=== PATIENT | female | born 1980 | race African-American/Black ===

== ENCOUNTER 2019-07-25 07:38 | Emergency (ER) | payer MEDICAID, MEDICARE ==
--- NOTE | 2019-07-25 08:05 | EDM.PDOC ---
ED HPI GENERAL MEDICAL PROBLEM - General Chief Complaint: Headache Stated Complaint: HEADACHE Time Seen by Provider: 07/25/19 08:04 - History of Present Illness INITIAL COMMENTS - FREE TEXT/NARRATIVE: 39-year-old female presents emergency room with neck and head pain. this is been getting worse over the last couple of days. She has a significant history of cervical stenosis in the upper vertebrae. She has pain on the left side of her neck muscles that extend up the left side of her scalp. No nausea vomiting no fevers or chills. She is 3 months otherwise doing well she has no other complaints. She's had no change in her vision and hearing balance or other functions. 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 Headache Pain Score (Numeric/FACES): 5 - Related Data Allergies Allergy/AdvReac Type Severity Reaction Status Date / Time morphine Allergy Itching Verified 07/25/19 07:51 lactose AdvReac Stomach Verified 07/25/19 07:51 Ache promethazine AdvReac Headache Verified 07/25/19 07:51 Home Meds: Home Meds Acetaminophen [Tylenol] 650 mg PO Q6H PRN tablet 02/26/19 [Rx] Albuterol Sulfate [Albuterol Sulfate Hfa] 2 puff IH Q4H PRN 07/25/19 [History] Methocarbamol [Robaxin-750] 1,500 mg PO Q6H #25 tablet 07/25/19 [Rx] Mirtazapine [Remeron] 15 mg PO BEDTIME 07/25/19 [History] Past Medical History Respiratory History: Reports: Asthma 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: Musculoskeletal History: Reports: Other (See Below) Other Musculoskeletal History: spinal stenosis Neurological History: Reports: Neuropathy, Peripheral Social & Family History - Tobacco Use Smoking Status *Q: Never Smoker - Caffeine Use Caffeine Use: Reports: None - Recreational Drug Use Recreational Drug Use: No ED ROS GENERAL - Review of Systems Review Of Systems: See Below Constitutional: Reports: No Symptoms HEENT: Reports: No Symptoms Respiratory: Reports: No Symptoms Cardiovascular: Reports: No Symptoms Endocrine: Reports: No Symptoms GI/Abdominal: Reports: No Symptoms Musculoskeletal: Reports: Neck Pain Skin: Reports: No Symptoms Neurological: Reports: Headache - Physical Exam Exam: See Below Exam Limited By: No Limitations General Appearance: Alert, No Apparent Distress Eye Exam: Bilateral Eye: EOMI, Normal Inspection, PERRL Ears: Normal External Exam, Normal Canal, Hearing Grossly Normal, Normal TMs Nose: Normal Inspection, Normal Mucosa, No Blood Throat/Mouth: Normal Inspection, Normal Lips, Normal Teeth, Normal Gums, Normal Oropharynx, Normal Voice, No Airway Compromise Head Exam: Atraumatic, Normocephalic, Other (Is superficial tenderness on the left side of her scalp. This is radiating up from the paraspinous muscles in her neck) Neck: Limited Range of Motion, Other (To begin discomfort in the left paraspinous muscles extending into her upper back and shoulder and into the base of her skull palpation here mimics the pain in her head and neck)). No: Lymphadenopathy (L), Lymphadenopathy (R), Tender Midline Respiratory/Chest: No Respiratory Distress, Lungs Clear, Normal Breath Sounds Cardiovascular: Regular Rate, Rhythm, No Edema, No Murmur Course - Vital Signs Last Recorded V/S: Last Vital Signs Temp 36.0 C 07/25/19 07:49 Pulse 70 07/25/19 07:49 Resp 16 07/25/19 07:49 BP 135/103 H 07/25/19 07:49 Pulse Ox 100 07/25/19 07:49 - Re-Assessments/Exams Free Text/Narrative Re-Assessment/Exam: 07/25/19 08:28 The patient drove herself in and we do not have the luxury of treating her here we will start Robaxin as an outpatient Departure - Departure Time of Disposition: 08:28 Disposition: Home, Self-Care 01 Clinical Impression: Muscle tension headache - Discharge Information Prescriptions: Methocarbamol [Robaxin-750] 1,500 mg PO Q6H #25 tablet Referrals: PCP,None [Primary Care Provider] - Forms: ED Department Discharge, ED Return to Work/School Form Additional Instructions: Return to the emergency room with any questions problems worsening symptoms. Take the Robaxin as directed. Sometimes Benadryl 25-50 mg 3-4 times a day can be beneficial. Continue to use your Tylenol Sepsis Event Note - Evaluation Sepsis Screening Result: No Definite Risk - Focused Exam Vital Signs: Vital Signs Temp Pulse Resp BP Pulse Ox 07/25/19 07:49 36.0 C 70 16 135/103 H 100 Date Exam was Performed: 07/25/19 Time Exam was Performed: 08:21
== END 2019-07-25 08:56 | disposition home or self-care (01) ==
LOC: JD.ED 07:38
DX: G44.209 Tension-type headache, unspecified, not intractable (principal); Z88.5 Allergy status to narcotic agent; Z88.8 Allergy status to other drugs, medicaments and biological substances; Z91.011 Allergy to milk products; J45.909 Unspecified asthma, uncomplicated; Z79.899 Other long term (current) drug therapy
CPT/HCPCS: 99283

== ENCOUNTER 2019-10-14 21:26 | Emergency (ER) | payer MEDICAID, MEDICARE ==
--- NOTE | 2019-10-14 22:13 | EDM.PDOC ---
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 Patient states that she took a home test, and it returned positive today. Patient states that her last menstrual period was September 12, she is 33 days . She is a G8, P5 with 2 previous miscarriages. Patient is not complaining of any pelvic pain, vaginal bleeding or vaginal discharge. Patient states that her other pregnancies went well, she has not started taking any sort of prenatals at this time as she just found out today that she was . Patient is not complaining of any dysuria, but does have some frequency and urgency components. 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 ED EXAM, RENAL/ - Physical Exam Exam: See Below Exam Limited By: No Limitations General Appearance: Alert, WD/WN, No Apparent Distress Respiratory/Chest: No Respiratory Distress, Lungs Clear, Normal Breath Sounds, No Accessory Muscle Use, Chest Non-Tender Cardiovascular: Normal Peripheral Pulses, Regular Rate, Rhythm, No Murmur GI/Abdominal: Normal Bowel Sounds, Soft, Non-Tender, No Distention, No Mass (Female) Exam: Deferred Extremities: Normal Inspection, Normal Capillary Refill Neurological: Alert, Oriented, Normal Cognition, No Motor/Sensory Deficits Psychiatric: Normal Affect, Normal Mood Skin Exam: Warm, Dry, Intact, Normal Color, No Rash Course - Vital Signs Last Recorded V/S: Last Vital Signs Temp 98.5 F 10/14/19 21:46 Pulse 81 10/14/19 21:46 Resp 20 10/14/19 21:46 BP 126/90 10/14/19 21:46 Pulse Ox 99 10/14/19 21:46 - Orders/Labs/Meds Orders: Active Orders 24 hr Category Date Time Status UA W/MICROSCOPIC [URIN] Stat Lab 10/14/19 22:05 Ordered Labs: Laboratory Tests 10/14/19 10/14/19 Range/Units 22:00 22:00 Urine Color Yellow (Yellow) Urine Appearance Clear (Clear) Urine pH 5.5 (5.0-8.0) Ur Specific [place] > or = 1.030 (1.005-1.030) Urine Protein Negative (Negative) Urine Glucose (UA) Negative (Negative) Urine Ketones Negative (Negative) Urine Occult Blood Negative (Negative) Urine Nitrite Negative (Negative) Urine Bilirubin Negative (Negative) Urine Urobilinogen 0.2 (0.2-1.0) Ur Leukocyte Esterase Negative (Negative) Urine HCG, Qual Positive (NEGATIVE) - Re-Assessments/Exams Free Text/Narrative Re-Assessment/Exam: 10/14/19 22:13 Patient presents to the ED for the evaluation of urinary symptoms and possible . Due to her urinary frequency and urgency, we will check a UA today, and also an HCG. 10/14/19 22:29 Patient's urinalysis demonstrates no infection. HCG is positive. Pt will be discharged home with general recommendations. Departure - Departure Time of Disposition: 22:29 Disposition: Home, Self-Care 01 Condition: Fair Clinical Impression: Qualifiers: Weeks of gestation: less than 8 weeks Qualified Code(s): Z3A.01 - Less than 8 weeks gestation of - Discharge Information *PRESCRIPTION DRUG MONITORING PROGRAM REVIEWED*: No *COPY OF PRESCRIPTION DRUG MONITORING REPORT IN PATIENT MACO: No Instructions: Care Referrals: Ailyn Medrano MD [Primary Care Provider] - Forms: ED Department Discharge Additional Instructions: You were evaluated in the ER today for possible and some slight urinary symptoms. Urinalysis demonstrates no sign of an infection, and you are done by urine test at today's ER visit. Please start taking vitamins if you are not already doing so, and follow-up with DRAFTER DETAIL sometime in the next week or 2 for further management of your . Please return to the ER at any time if your symptoms change or worsen. Sepsis Event Note - Evaluation Sepsis Screening Result: No Definite Risk - Focused Exam Vital Signs: Vital Signs Temp Pulse Resp BP Pulse Ox 10/14/19 21:46 98.5 F 81 20 126/90 99 Date Exam was Performed: 10/14/19 Time Exam was Performed: 22:29 - My Orders Last 24 Hours: My Active Orders 10/14/19 22:05 UA W/MICROSCOPIC [URIN] Stat - Assessment/Plan Last 24 Hours: My Active Orders 10/14/19 22:05 UA W/MICROSCOPIC [URIN] Stat
== END 2019-10-14 22:55 | disposition home or self-care (01) ==
LOC: JD.ED 21:26
DX: O99.89 Other specified diseases and conditions complicating pregnancy, childbirth and the puerperium (principal); R35.0 Frequency of micturition; O99.331 Smoking (tobacco) complicating pregnancy, first trimester; F17.210 Nicotine dependence, cigarettes, uncomplicated; Z88.8 Allergy status to other drugs, medicaments and biological substances; Z88.5 Allergy status to narcotic agent; Z79.899 Other long term (current) drug therapy; Z3A.01 Less than 8 weeks gestation of pregnancy
CPT/HCPCS: 81001; 81025; 99282; 99284

== ENCOUNTER 2019-12-15 09:50 | Emergency (ER) | payer MEDICARE, MEDICAID ==
[2019-12-15] MEDS ORDERED: Acetaminophen 325 MG Tab PO ONE (10:15)
--- NOTE | 2019-12-15 12:14 | EDM.PDOC ---
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 This has been going on for a few days. She also has trouble urinating and pain with BMs. She is 13 weeks . She is . She has no vaginal bleeding and no discharge. She has no fever, chills, cough, congestion, runny nose, nausea or vomiting. Onset: Gradual Duration: Day(s): Location: Reports: Abdomen Quality: Reports: Sharp Severity: Moderate Improves with: Reports: None Worsens with: Reports: None Associated Symptoms: Reports: No Other Symptoms Lower Abdomen Pain Score (Numeric/FACES): 9 - Related Data Allergies Allergy/AdvReac Type Severity Reaction Status Date / Time morphine Allergy Itching Verified 12/15/19 10:07 lactose AdvReac Stomach Verified 12/15/19 10:07 Ache promethazine AdvReac Headache Verified 12/15/19 10:07 Home Meds: Home Meds Acetaminophen [Tylenol] 650 mg PO Q6H PRN tablet 02/26/19 [Rx] Albuterol Sulfate [Albuterol Sulfate Hfa] 2 puff IH Q4H PRN 07/25/19 [History] Aspirin [Adult Low Dose Aspirin EC] 81 mg PO DAILY 12/15/19 [History] Prenat 115/Iron Fum/Folic/Dss [ 19 Tablet] 1 tab PO DAILY 12/15/19 [ History] Past Medical History Respiratory History: Reports: Asthma 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: , 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 Musculoskeletal History: Reports: Other (See Below) Other Musculoskeletal History: spinal stenosis;arthritis to neck and spurs to neck;scoliosis Neurological History: Reports: Neuropathy, Peripheral Social & Family History - Tobacco Use Smoking Status *Q: Current Every Day Smoker Years of Tobacco use: 29 Packs/Tins Daily: 0.1 - Caffeine Use Caffeine Use: Reports: None - Recreational Drug Use Recreational Drug Use: Yes Drug Use in Last 12 Months: Yes Recreational Drug Type: Reports: Marijuana/Hashish Recreational Drug Use Frequency: Daily Recreational Drug Last Use: yesterday ED ROS GENERAL - Review of Systems Review Of Systems: See Below Constitutional: Reports: No Symptoms HEENT: Reports: No Symptoms Respiratory: Reports: No Symptoms Cardiovascular: Reports: No Symptoms Endocrine: Reports: No Symptoms GI/Abdominal: Reports: Abdominal Pain. Denies: Nausea, Vomiting : Reports: No Symptoms Musculoskeletal: Reports: No Symptoms ED EXAM, GI/ABD - Physical Exam Exam: See Below Exam Limited By: No Limitations General Appearance: Alert, No Apparent Distress Ears: Normal External Exam Nose: Normal Inspection Head: Atraumatic, Normocephalic Neck: Normal Inspection Respiratory/Chest: No Respiratory Distress, Lungs Clear, Normal Breath Sounds Cardiovascular: Regular Rate, Rhythm, No Edema, No Murmur GI/Abdominal Exam: Soft, Non-Tender, No Organomegaly, No Mass, Other (Uterus above the pelvis) Course - Vital Signs Last Recorded V/S: Last Vital Signs Temp 98.4 F 12/15/19 10:01 Pulse 69 12/15/19 10:01 Resp 20 12/15/19 10:01 BP 124/82 12/15/19 10:01 Pulse Ox 100 12/15/19 10:01 - Orders/Labs/Meds Orders: Active Orders 24 hr Category Date Time Status OB 1st Tri Sgl 1st Gest [US] Stat Exams 12/15/19 10:13 Taken HYDROmorphone [Dilaudid] Med 12/15/19 12:18 Once 0.5 mg IM ONETIME ONE Labs: Laboratory Tests 12/15/19 12/15/19 12/15/19 Range/Units 10:00 10:40 10:40 WBC 6.06 (3.98-10.04) K/mm3 RBC 4.37 (3.98-5.22) M/mm3 Hgb 12.7 (11.2-15.7) gm/dl Hct 37.6 (34.1-44.9) % MCV 86.0 (79.4-94.8) fl MCH 29.1 (25.6-32.2) pg MCHC 33.8 (32.2-35.5) g/dl RDW Std Deviation 44.5 (36.4-46.3) fL Plt Count 300 (182-369) K/mm3 MPV 9.8 (9.4-12.3) fl Neut % (Auto) 43.3 (34.0-71.1) % Lymph % (Auto) 41.1 (19.3-51.7) % [place] % (Auto) 8.1 (4.7-12.5) % Eos % (Auto) 6.8 H (0.7-5.8) Baso % (Auto) 0.5 (0.1-1.2) % Neut # (Auto) 2.63 (1.56-6.13) K/mm3 Lymph # (Auto) 2.49 (1.18-3.74) K/mm3 [place] # (Auto) 0.49 H (0.24-0.36) K/mm3 Eos # (Auto) 0.41 H (0.04-0.36) K/mm3 Baso # (Auto) 0.03 (0.01-0.08) K/mm3 Sodium 136 (136-145) mEq/L Potassium 4.0 (3.5-5.1) mEq/L Chloride 104 (98-107) mEq/L Carbon Dioxide 22 (21-32) mEq/L Anion Gap 14.0 (5-15) BUN 7 (7-18) mg/dL Creatinine 0.6 (0.55-1.02) mg/dL Est Cr Clr Drug Dosing 117.84 mL/min Estimated GFR (MDRD) > 60 (>60) mL/min BUN/Creatinine Ratio 11.7 L (14-18) Glucose 90 (74-106) mg/dL Calcium 8.7 (8.5-10.1) mg/dL Total Bilirubin 0.4 (0.2-1.0) mg/dL AST 14 L (15-37) U/L ALT 17 (14-59) U/L Alkaline Phosphatase 61 (46-116) U/L Total Protein 6.9 (6.4-8.2) g/dl Albumin 3.4 (3.4-5.0) g/dl Globulin 3.5 gm/dL Albumin/Globulin Ratio 1.0 (1-2) Lipase 165 (73-393) U/L HCG, Quant mIU/mL Urine Color Yellow (Yellow) Urine Appearance Clear (Clear) Urine pH 6.5 (5.0-8.0) Ur Specific [place] 1.025 (1.005-1.030) Urine Protein Negative (Negative) Urine Glucose (UA) Negative (Negative) Urine Ketones Negative (Negative) Urine Occult Blood Negative (Negative) Urine Nitrite Negative (Negative) Urine Bilirubin Negative (Negative) Urine Urobilinogen 0.2 (0.2-1.0) Ur Leukocyte Esterase Negative (Negative) 12/15/19 Range/Units 10:40 WBC (3.98-10.04) K/mm3 RBC (3.98-5.22) M/mm3 Hgb (11.2-15.7) gm/dl Hct (34.1-44.9) % MCV (79.4-94.8) fl MCH (25.6-32.2) pg MCHC (32.2-35.5) g/dl RDW Std Deviation (36.4-46.3) fL Plt Count (182-369) K/mm3 MPV (9.4-12.3) fl Neut % (Auto) (34.0-71.1) % Lymph % (Auto) (19.3-51.7) % [place] % (Auto) (4.7-12.5) % Eos % (Auto) (0.7-5.8) Baso % (Auto) (0.1-1.2) % Neut # (Auto) (1.56-6.13) K/mm3 Lymph # (Auto) (1.18-3.74) K/mm3 [place] # (Auto) (0.24-0.36) K/mm3 Eos # (Auto) (0.04-0.36) K/mm3 Baso # (Auto) (0.01-0.08) K/mm3 Sodium (136-145) mEq/L Potassium (3.5-5.1) mEq/L Chloride (98-107) mEq/L Carbon Dioxide (21-32) mEq/L Anion Gap (5-15) BUN (7-18) mg/dL Creatinine (0.55-1.02) mg/dL Est Cr Clr Drug Dosing mL/min Estimated GFR (MDRD) (>60) mL/min BUN/Creatinine Ratio (14-18) Glucose (74-106) mg/dL Calcium (8.5-10.1) mg/dL Total Bilirubin (0.2-1.0) mg/dL AST (15-37) U/L ALT (14-59) U/L Alkaline Phosphatase (46-116) U/L Total Protein (6.4-8.2) g/dl Albumin (3.4-5.0) g/dl Globulin gm/dL Albumin/Globulin Ratio (1-2) Lipase (73-393) U/L HCG, Quant 615027.0 mIU/mL Urine Color (Yellow) Urine Appearance (Clear) Urine pH (5.0-8.0) Ur Specific [place] (1.005-1.030) Urine Protein (Negative) Urine Glucose (UA) (Negative) Urine Ketones (Negative) Urine Occult Blood (Negative) Urine Nitrite (Negative) Urine Bilirubin (Negative) Urine Urobilinogen (0.2-1.0) Ur Leukocyte Esterase (Negative) Meds: Medications Discontinued Medications Generic Name Dose Route Start Last Admin Trade Name Freq PRN Reason Stop Dose Admin Acetaminophen 975 mg 12/15/19 10:15 12/15/19 10:19 Tylenol PO 12/15/19 10:16 975 mg ONETIME ONE Administration - Re-Assessments/Exams Free Text/Narrative Re-Assessment/Exam: 12/15/19 12:11 I ordered labs and an US. Her CBC and CMP look good. Her lipase is negative. Her HCG is 107,677. Her UA shows no UTI. Her US shows FHR of 159 and the fetus measures 13 weeks 4 days. Her EDC 06/17. 12/15/19 12:19 She still has some pain. I will give her a shot and discharge her home to follow up with Dr Winston early next week. Departure - Departure Time of Disposition: 12:20 Disposition: Home, Self-Care 01 Condition: Good Clinical Impression: Qualifiers: Weeks of gestation: 13 weeks Qualified Code(s): Z3A.13 - 13 weeks gestation of Abdominal pain Qualifiers: Abdominal location: lower abdomen, unspecified Qualified Code(s): R10.30 - Lower abdominal pain, unspecified - Discharge Information *PRESCRIPTION DRUG MONITORING PROGRAM REVIEWED*: Not Applicable *COPY OF PRESCRIPTION DRUG MONITORING REPORT IN PATIENT MACO: Not Applicable Referrals: Sadaf Winston MD [Primary Care Provider] - 1 Week Forms: ED Department Discharge Additional Instructions: Take tylenol as needed for pain. Please return if you are worse. Follow up with Dr Winston next week. Sepsis Event Note - Evaluation Sepsis Screening Result: No Definite Risk - Focused Exam Vital Signs: Vital Signs Temp Pulse Resp BP Pulse Ox 12/15/19 10:01 98.4 F 69 20 124/82 100 Date Exam was Performed: 12/15/19 Time Exam was Performed: 12:19 - My Orders Last 24 Hours: My Active Orders 12/15/19 10:13 OB 1st Tri Sgl 1st Gest [US] Stat 12/15/19 12:18 HYDROmorphone [Dilaudid] 0.5 mg IM ONETIME ONE - Assessment/Plan Last 24 Hours: My Active Orders 12/15/19 10:13 OB 1st Tri Sgl 1st Gest [US] Stat 12/15/19 12:18 HYDROmorphone [Dilaudid] 0.5 mg IM ONETIME ONE
[2019-12-15] MEDS ORDERED: HYDROmorphone 0.5 MG/0.5 ML Syringe IM ONE (12:18)
--- NOTE | 2019-12-16 11:25 | US ---
Obstetrical ultrasound: Multiple real-time images were obtained transabdominally. Comparison: No previous obstetrical imaging for current is available. Dates: Current ultrasound: [facility] 06/17/20, gestational age 13 weeks 4 days Single intrauterine fetus is seen. Maternal ovaries appear within normal limits. Multiple small subchorionic hemorrhages are noted. Measurements: BPD: 2.33 cm - 14 weeks 0 days Head circumference: 8.73 cm - 14 weeks 0 days Abdominal circumference: 6.9 cm - 13 weeks 4 days Femur length: 1.03 cm - 13 weeks 1 day Estimated weight: 74 g (0 lbs. 3 oz.) Heart rate: 159 bpm Impression: 1. Single intrauterine fetus. Dates as noted above. 2. Multiple small subchorionic hemorrhages. 3. No other complicating process is appreciated. Diagnostic code #3 This report was dictated in MDT I agree with preliminary report from ty, finalized on 12/15/19, 6:28 PM Central Daylight Time
== END 2019-12-15 12:50 | disposition home or self-care (01) ==
LOC: JD.ED 09:50
DX: O99.89 Other specified diseases and conditions complicating pregnancy, childbirth and the puerperium (principal); R10.30 Lower abdominal pain, unspecified; O99.511 Diseases of the respiratory system complicating pregnancy, first trimester; J45.909 Unspecified asthma, uncomplicated; O99.331 Smoking (tobacco) complicating pregnancy, first trimester; F17.210 Nicotine dependence, cigarettes, uncomplicated; Z3A.13 13 weeks gestation of pregnancy; Z88.5 Allergy status to narcotic agent; Z88.8 Allergy status to other drugs, medicaments and biological substances; Z91.09 Other allergy status, other than to drugs and biological substances; Z79.82 Long term (current) use of aspirin
CPT/HCPCS: 36415; 76801; 80053; 81003; 83690; 84702; 85025; 96372; 99284; A9270; J1170; 99282

== ENCOUNTER 2020-06-08 11:25 | Inpatient (IN) | payer MEDICARE, MEDICAID ==
[2020-06-08] MEDS ORDERED: Sodium Chloride 0.9% 10 ML Syringe FLUSH PRN (12:04)
[2020-06-08] MEDS ORDERED: Lidocaine 1% 50 ML MDV INJECT ONE (12:04)
[2020-06-08] MEDS ORDERED: Acetaminophen 325 MG Tab PO PRN (12:04)
[2020-06-08] MEDS ORDERED: Oxytocin/Lactated Ringers 10 UNIT/1,000 ML BAG IV SCH ×2 (12:15→15:55)
[2020-06-08] MEDS ORDERED: Lactated Ringers 1,000 ML IV SCH (12:15)
[2020-06-08] MEDS ORDERED: Nalbuphine 10 MG/ML Syringe IVPUSH PRN ×2 (12:18→14:44)
[2020-06-08] MEDS ORDERED: FLU VACC QS2020-21(6MOS UP)/PF 60 MCG/0.5 ML SYRINGE IM ONE (13:00)
--- NOTE | 2020-06-08 13:02 | PCM.LDHP ---
<Bertha Galicia - Last Filed: 06/08/20 12:57> L&D History of Present Illness - General Date of Service: 06/08/20 Admit Problem/Dx: Patient Status Order with Admit Dx/Problem 06/08/20 12:04 Patient Status [ADT] Routine Admission Diagnosis/Problem Admission Diagnosis/Problem 06/08/20 12:57 Patient is a 40 y.o. 8 para 5 female who presents in early labor at 38 weeks and 4 days with membranes intact and contractions about 3-4 minutes apart. 06/08/20 13:08 Source of Information: Patient History Limitations: Reports: No Limitations - History of Present Illness Introduction:: Patient is a 40 y.o. 8 para 5 female who presents in early labor at 38 weeks 4 days gestation with membranes intact and contractions about 3-4 minutes apart. SPIKE is 06/18/2020 based on her LMP of 09/12/2019. She reports that she lost her mucous plug this morning when she was going to the bathroom and describes it as a brown color. After this, she began garrett frequently. She called [facility] and was told to come in. When she arrived, she was 5 cm dilated. She has had good care and was able to make it to all of her appointments. She reports no concerns or symptoms during her early course. Vital signs have been stable throughout the . Blood type is O+, antibody negative, rubella immune, and HBsAg negative. RPR and HIV were negative. First trimester labs show a hemoglobin of 14.3 g/dL and platelets were 332,000. Second trimester labs show a hemoglobin of 12.0 g/dL and platelets were 311,000. Her 1hr GTT was elevated at 150 mg/dL, so a 3 hr GTT was completed and was 73 mg/dL. Group B strep swab was negative. Genetic screening was completed and was unremarkable. She plans to breastfeed. She does have a personal history of drug abuse of methamphetamine, cocaine, and marijuana but denies use during this . She is a current everyday smoker and reports that she smokes about 5-6 cigarettes per day. She also reports that she has anxiety but has been off of her medications for the last 2 years due to her pregnancies. Medications: vitamin once daily albuterol inhaler PRN, takes at night Location, : Reports: Uterus Quality: Reports: Pressure Severity: Moderate - Related Data Allergies/Adverse Reactions: Allergies Allergy/AdvReac Type Severity Reaction Status Date / Time doxycycline Allergy Nausea and Verified 06/08/20 13:38 Vomiting morphine Allergy Itching Verified 06/08/20 13:38 lactose AdvReac Stomach Verified 06/08/20 13:38 Ache promethazine AdvReac Headache Verified 06/08/20 13:38 dial soap Allergy Rash Uncoded 06/08/20 13:38 Home Medications: Home Meds Albuterol Sulfate [Albuterol Sulfate Hfa] 2 puff IH Q4H PRN 07/25/19 [History] Aspirin [Adult Low Dose Aspirin EC] 81 mg PO DAILY 12/15/19 [History] Prenat 115/Iron Fum/Folic/Dss [ 19 Tablet] 1 tab PO DAILY 12/15/19 [History] Past Medical History Respiratory History: Reports: Asthma SAP MANAGER History: Reports: , Spontaneous Musculoskeletal History: Reports: Other (See Below) Other Musculoskeletal History: spinal stenosis;arthritis to neck and spurs to neck;scoliosis Neurological History: Reports: Neuropathy, Peripheral Social & Family History - Family History Cardiac: Reports: NE (Mother at age 51-52) Neurological: Reports: CVA (Uncle) Psychiatric: Reports: Autism (Cousin) Oncologic: Reports: Breast (Cousin - dx before age 35) - Tobacco Use Tobacco Use Status *Q: Current Every Day Tobacco User Tobacco Use Within Last Twelve Months: Cigarettes Years of Tobacco use: 30 Packs/Tins Daily: 0.5 - Caffeine Use Caffeine Use: Reports: None - Recreational Drug Use Recreational Drug Use: Yes Drug Use in Last 12 Months: No Recreational Drug Type: Reports: Cocaine, Marijuana/Hashish, Methamphetamine H&P Review of Systems - Review of Systems: Review Of Systems: See Below General: Denies: Fever, Chills, Night Sweats, Decreased Appetite HEENT: Reports: Headaches Pulmonary: Reports: Wheezing. Denies: Shortness of Breath, Pleuritic Chest Pain, Cough Cardiovascular: Denies: Chest Pain, Palpitations, Dyspnea on Exertion Gastrointestinal: Denies: Abdominal Pain, Constipation, Diarrhea, Nausea, Vomiting Genitourinary: Denies: Dysuria, Frequency, Burning, Pain, Urgency Musculoskeletal: Reports: Back Pain Psychiatric: Reports: Anxiety Neurological: Reports: Headache L&D Exam - Exam Exam: See Below - OB Specific Contraction Intensity: Moderate to Strong Movement: Active Heart Tones: Present - Crocker Score Crocker Score Cervix Position: Anterior Crocker Score Consistency: Soft Crocker Score Effacement: 51-70% Crocker Score Dilation: > 5 cm Crocker Score Infant's Station: -2 Crocker Score Total: 10 - Exam General: Alert, Oriented Lungs: Clear to Auscultation, Normal Respiratory Effort Cardiovascular: Regular Rate, Regular Rhythm, Normal S1, Normal S2 Genitourinary: Normal external exam, Cervical dilitation, Enlarged uterus Skin: Warm, Dry, Intact Psychiatric: Alert, Normal Affect, Normal Mood - Patient Data Lab Results Last 24 hrs: Laboratory Results - last 24 hr 06/08/20 Range/Units 12:24 WBC 7.65 (3.98-10.04) K/mm3 RBC 4.44 (3.98-5.22) M/mm3 Hgb 12.8 (11.2-15.7) gm/dl Hct 38.5 (34.1-44.9) % MCV 86.7 (79.4-94.8) fl MCH 28.8 (25.6-32.2) pg MCHC 33.2 (32.2-35.5) g/dl RDW Std Deviation 43.6 (36.4-46.3) fL Plt Count 312 (182-369) K/mm3 MPV 10.5 (9.4-12.3) fl Neut % (Auto) 64.6 (34.0-71.1) % Lymph % (Auto) 23.3 (19.3-51.7) % [place] % (Auto) 10.6 (4.7-12.5) % Eos % (Auto) 0.8 (0.7-5.8) Baso % (Auto) 0.3 (0.1-1.2) % Neut # (Auto) 4.95 (1.56-6.13) K/mm3 Lymph # (Auto) 1.78 (1.18-3.74) K/mm3 [place] # (Auto) 0.81 H (0.24-0.36) K/mm3 Eos # (Auto) 0.06 (0.04-0.36) K/mm3 Baso # (Auto) 0.02 (0.01-0.08) K/mm3 Result Diagrams: 06/08/20 12:24 Problem List Initiated/Reviewed/Updated: Yes Orders Last 24hrs: Active Orders 24 hr Category Date Time Status Patient Status [ADT] Routine ADT 06/08/20 12:04 Active Activity as Tolerated [RC] PFP Care 06/08/20 12:04 Active Communication Order [RC] ASDIRECTED Care 06/08/20 12:04 Active Heart Tones [RC] ASDIRECTED Care 06/08/20 12:05 Active Non Stress Test [RC] PER UNIT ROUTINE Care 06/08/20 12:04 Active Influenza Vaccine Charge [RC] .DISCHARGE Care 06/08/20 12:43 Active Notify Provider [RC] PFP Care 06/08/20 12:04 Active Notify Provider [RC] PRN Care 06/08/20 12:04 Active Peripheral IV Care [RC] . DIRECTED Care 06/08/20 12:05 Active Urinary Catheter Assessment [RC] ASDIRECTED Care 06/08/20 12:04 Active Vital Signs [RC] PER UNIT ROUTINE Care 06/08/20 12:04 Active Regular Diet [DIET] Diet 06/08/20 Dinner Active CORONAVIRUS COVID-19 BRE [MOLEC] Stat Lab 06/08/20 12:00 Received DRUG SCREEN, URINE [URCHEM] Stat Lab 06/08/20 12:46 Ordered RAPID PLASMA REAGIN,RPR [CHEM] Routine Lab 06/08/20 12:04 Ordered Acetaminophen [TylenoL] Med 06/08/20 12:04 Active 650 mg PO Q4H PRN Flu Vacc [id number](6Mos Up)/Pf [Fluzone Quad [id number] Med 06/08/20 13:00 Once Syringe] 60 mcg IM .ONCE ONE Lactated Ringers [Ringers, Lactated] 1,000 ml Med 06/08/20 12:15 Active IV ASDIRECTED Nalbuphine [Nubain] Med 06/08/20 12:18 Active 10 mg IVPUSH Q3H PRN Oxytocin/Lactated Ringers [Pitocin in LR 10 Units/1,000 Med 06/08/20 12:15 Active ML] 10 unit in 1,000 ml IV .CONTINUOUS Sodium Chloride 0.9% [Saline Flush] Med 06/08/20 12:04 Active 10 ml FLUSH ASDIRECTED PRN Electronic Heart Tones Ext w TOCO [WOMSER] Oth 06/08/20 12:04 Ordered Routine Electronic Heart Tones Internal [WOMSER] Per Unit Ot 06/08/20 12:04 Ordered Routine Peripheral IV Insertion Adult [OM.PC] Routine Oth 06/08/20 12:04 Ordered Resuscitation Status Routine Resus Stat 06/08/20 12:04 Ordered Medication Orders Acetaminophen (Tylenol) 650 mg PO Q4H PRN PRN Reason: Pain (Mild 1-3) and fever Oxytocin/Lactated Ringer's (Pitocin In Lr 10 Units/1,000 Ml) 10 unit in 1,000 mls @ 100 mls/hr IV .CONTINUOUS RANDY Lactated Ringer's (Ringers, Lactated) 1,000 mls @ 100 mls/hr IV ASDIRECTED RANDY Influenza Virus Vaccine (Fluzone Quad Syringe) 60 mcg IM .ONCE ONE Stop: 06/08/20 13:01 Nalbuphine HCl (Nubain) 10 mg IVPUSH Q3H PRN PRN Reason: Pain (moderate 4-6) Sodium Chloride (Saline Flush) 10 ml FLUSH ASDIRECTED PRN PRN Reason: Keep Vein Open Assessment/Plan Comment:: Assessment: 1. 40 y.o. female in active labor. 2. O+ blood type. 3. GBS negative. Plan: 1. Anticipate normal spontaneous vaginal delivery. 2. Epidural or pain medications at patient's request. 3. care per protocol. 4. Support breast feeding plan. <Azael Haney - Last Filed: 06/08/20 13:56> L&D History of Present Illness - General Admit Problem/Dx: Patient Status Order with Admit Dx/Problem 06/08/20 12:04 Patient Status [ADT] Routine Admission Diagnosis/Problem Admission Diagnosis/Problem Past Medical History Psychiatric History: Reports: Bipolar Social & Family History - Tobacco Core Measures Tobacco Use/Smoking Within Last 30 Days: Yes Smoking Frequency Within Last 30 Days: Reports: Five or More Cigarettes Per Day Desires Tobacco Cessation Medication: Refuses FDA Approved Med - Alcohol Use Alcohol Use History: No Alcohol Use in Last Twelve Months: No L&D Exam - Vital Signs Vital Signs: Last Vital Signs Temp 36.9 C 06/08/20 12:04 Pulse 95 06/08/20 12:04 Resp 18 06/08/20 12:04 BP 135/87 06/08/20 12:04 Pulse Ox - Patient Data Lab Results Last 24 hrs: Laboratory Results - last 24 hr 06/08/20 06/08/20 Range/Units 12:00 12:24 WBC 7.65 (3.98-10.04) K/mm3 RBC 4.44 (3.98-5.22) M/mm3 Hgb 12.8 (11.2-15.7) gm/dl Hct 38.5 (34.1-44.9) % MCV 86.7 (79.4-94.8) fl MCH 28.8 (25.6-32.2) pg MCHC 33.2 (32.2-35.5) g/dl RDW Std Deviation 43.6 (36.4-46.3) fL Plt Count 312 (182-369) K/mm3 MPV 10.5 (9.4-12.3) fl Neut % (Auto) 64.6 (34.0-71.1) % Lymph % (Auto) 23.3 (19.3-51.7) % [place] % (Auto) 10.6 (4.7-12.5) % Eos % (Auto) 0.8 (0.7-5.8) Baso % (Auto) 0.3 (0.1-1.2) % Neut # (Auto) 4.95 (1.56-6.13) K/mm3 Lymph # (Auto) 1.78 (1.18-3.74) K/mm3 [place] # (Auto) 0.81 H (0.24-0.36) K/mm3 Eos # (Auto) 0.06 (0.04-0.36) K/mm3 Baso # (Auto) 0.02 (0.01-0.08) K/mm3 SARS-CoV-2 RNA (BRE) Negative (NEGATIVE) Result Diagrams: 06/08/20 12:24 - Problem List (1) 38 weeks gestation of SNOMED Code(s): 99201288 ICD Code: Z3A.38 - 38 WEEKS GESTATION OF Status: Acute Current Visit: Yes (2) Asthma affecting in third trimester SNOMED Code(s): 17630317516290, 55550950432775 ICD Code: O99.513 - DISEASES OF THE RESP SYS COMP , THIRD TRIMESTER; J45.909 - UNSPECIFIED ASTHMA, UNCOMPLICATED Status: Acute Current Visit: Yes (3) Bipolar disease in SNOMED Code(s): 26176696 ICD Code: O99.340 - OTH MENTAL DISORDERS COMPLICATING , UNSP TRIMESTER; F31.9 - BIPOLAR DISORDER, UNSPECIFIED Status: Acute Current Visit: Yes (4) Tobacco use during SNOMED Code(s): 870818640607991 ICD Code: O99.330 - SMOKING (TOBACCO) COMPLICATING , UNSP TRIMESTER Status: Acute Current Visit: Yes Orders Last 24hrs: Active Orders 24 hr Category Date Time Status Patient Status [ADT] Routine ADT 06/08/20 12:04 Active Activity as Tolerated [RC] PFP Care 06/08/20 12:04 Active Communication Order [RC] ASDIRECTED Care 06/08/20 12:04 Active Heart Tones [RC] ASDIRECTED Care 06/08/20 12:05 Active Notify Provider [RC] PFP Care 06/08/20 12:04 Active Notify Provider [RC] PRN Care 06/08/20 12:04 Active Peripheral IV Care [RC] . DIRECTED Care 06/08/20 12:05 Active Urinary Catheter Assessment [RC] ASDIRECTED Care 06/08/20 12:04 Active Vital Signs [RC] PER UNIT ROUTINE Care 06/08/20 12:04 Active Regular Diet [DIET] Diet 06/08/20 Dinner Active DRUG SCREEN, URINE [URCHEM] Stat Lab 06/08/20 12:46 Ordered RAPID PLASMA REAGIN,RPR [CHEM] Routine Lab 06/08/20 12:04 Ordered Acetaminophen [TylenoL] Med 06/08/20 12:04 Active 650 mg PO Q4H PRN Lactated Ringers [Ringers, Lactated] 1,000 ml Med 06/08/20 12:15 Active IV ASDIRECTED Nalbuphine [Nubain] Med 06/08/20 12:18 Active 10 mg IVPUSH Q3H PRN Oxytocin/Lactated Ringers [Pitocin in LR 10 Units/1,000 Med 06/08/20 12:15 Active ML] 10 unit in 1,000 ml IV .CONTINUOUS Sodium Chloride 0.9% [Saline Flush] Med 06/08/20 12:04 Active 10 ml FLUSH ASDIRECTED PRN Electronic Heart Tones Ext w TOCO [WOMSER] Oth 06/08/20 12:04 Ordered Routine Electronic Heart Tones Internal [WOMSER] Per Unit Oth 06/08/20 12:04 Ordered Routine Peripheral IV Insertion Adult [OM.PC] Routine Oth 06/08/20 12:04 Ordered Resuscitation Status Routine Resus Stat 06/08/20 12:04 Ordered Medication Orders Acetaminophen (Tylenol) 650 mg PO Q4H PRN PRN Reason: Pain (Mild 1-3) and fever Oxytocin/Lactated Ringer's (Pitocin In Lr 10 Units/1,000 Ml) 10 unit in 1,000 mls @ 100 mls/hr IV .CONTINUOUS RANDY Lactated Ringer's (Ringers, Lactated) 1,000 mls @ 100 mls/hr IV ASDIRECTED RANDY Nalbuphine HCl (Nubain) 10 mg IVPUSH Q3H PRN PRN Reason: Pain (moderate 4-6) Last Admin: 06/08/20 13:06 Dose: 10 mg Documented by: DVORMAR Sodium Chloride (Saline Flush) 10 ml FLUSH ASDIRECTED PRN PRN Reason: Keep Vein Open Assessment/Plan Comment:: Shaila Marin is a 40-year-old -0-2-5 at 38 weeks 4 days (SPIKE 06/18/2020) by LMP consistent with a 7-week ultrasound with spontaneous labor Artificial rupture membranes performed with return of clear fluid I have seen and evaluated the patient with the PA student and agree with her assessment and plan as above without any changes noted. Anticipate vaginal delivery unless otherwise indicated. Azael Haney MD 1:55 PM 06/08/2020
[2020-06-08] MEDS ORDERED: Witch Hazel Medicated Pads 40/Jar TOP PRN (15:55)
[2020-06-08] MEDS ORDERED: Docusate Sodium 100 MG Cap PO PRN (15:55)
[2020-06-08] MEDS ORDERED: Hydrocortisone Acetate 25 MG Supp RECTAL PRN (15:55)
[2020-06-08] MEDS ORDERED: Magnesium Hydroxide 400 MG/5 ML Susp 30 ML Cup PO PRN (15:55)
[2020-06-08] MEDS ORDERED: Benzocaine/Menthol 20%-0.5% Spray 56 GM Canister TOP PRN (15:55)
--- NOTE | 2020-06-08 15:55 | PCM.DEL ---
L & D Note - General Info Date of Service: 06/08/20 Mother's Due Date: 06/18/20 - Delivery Note Labor: Spontaneous, Augmented by ARM Delivery Outcome: Livebirth Delivery Method: Spontaneous Vaginal Delivery-Single Presentation: Right Occiput Anterior (CHRIS) Nuchal Cord: Present (and reduced after delivery of infant) Anesthesia Type: None Amniotic Fluid Description: Clear Episiotomy Type: None Laceration: None Placenta: Intact, Spontaneous Cord: 3 Vessels Estimated Blood Loss: 200 [place]: Bulb Syringe, Stimulated, Warmed, [place] Used Provider: Azael Haney Score 1 min: 8 Score 5 min: 9 Second Stage Interventions: Reports: Pushing Effectively, Pushing, Stirrups/Leg Supports Delivery Comments (Free Text/Narrative):: Stage I: Shaila Marin was admitted for spontaneous labor. On admission her cervix was dilated to 5 cm. She was GBS negative. She had artificial rupture of membranes with return of clear fluid. She progressed to complete and pushing. Stage II: On 06/08/2020 she had a normal vaginal delivery of a live female infant at 15:24. Apgars of 8 & 9. Weight of 2550 g (5 lbs 9.9 oz). Length of 18 inches. There was a single nuchal cord that was unable to be reduced prior to luna. was delivered through the nuchal cord and reduced after delivery. was delivered in CHRIS position. The cord was doubly clamped and cut by father the . Infant was placed on mother's abdomen. Stage III: She had a spontaneous delivery of an intact placenta in Manjinder presentation. Three vessel cord. She was given pitocin and fundal massage. She had no lacerations. Mom and baby were stable to recovery. EBL of 200 mL. Azael Haney MD 3:52 PM 06/08/2020 - General Info Date of Service: 06/08/20 - Patient Data Vitals - Most Recent: Last Vital Signs Temp 36.9 C 06/08/20 12:04 Pulse 95 06/08/20 12:04 Resp 18 06/08/20 12:04 BP 135/87 06/08/20 12:04 Pulse Ox Weight - Most Recent: 69.853 kg Lab Results Last 24 Hours: Laboratory Results - last 24 hr 06/08/20 06/08/20 Range/Units 12:00 12:24 WBC 7.65 (3.98-10.04) K/mm3 RBC 4.44 (3.98-5.22) M/mm3 Hgb 12.8 (11.2-15.7) gm/dl Hct 38.5 (34.1-44.9) % MCV 86.7 (79.4-94.8) fl MCH 28.8 (25.6-32.2) pg MCHC 33.2 (32.2-35.5) g/dl RDW Std Deviation 43.6 (36.4-46.3) fL Plt Count 312 (182-369) K/mm3 MPV 10.5 (9.4-12.3) fl Neut % (Auto) 64.6 (34.0-71.1) % Lymph % (Auto) 23.3 (19.3-51.7) % [place] % (Auto) 10.6 (4.7-12.5) % Eos % (Auto) 0.8 (0.7-5.8) Baso % (Auto) 0.3 (0.1-1.2) % Neut # (Auto) 4.95 (1.56-6.13) K/mm3 Lymph # (Auto) 1.78 (1.18-3.74) K/mm3 [place] # (Auto) 0.81 H (0.24-0.36) K/mm3 Eos # (Auto) 0.06 (0.04-0.36) K/mm3 Baso # (Auto) 0.02 (0.01-0.08) K/mm3 SARS-CoV-2 RNA (BRE) Negative (NEGATIVE) Med Orders - Current: Current Medications Acetaminophen (Tylenol) 650 mg PO Q4H PRN PRN Reason: Pain (Mild 1-3) and fever Oxytocin/Lactated Ringer's (Pitocin In Lr 10 Units/1,000 Ml) 10 unit in 1,000 mls @ 100 mls/hr IV .CONTINUOUS RANDY Lactated Ringer's (Ringers, Lactated) 1,000 mls @ 100 mls/hr IV ASDIRECTED RANDY Nalbuphine HCl (Nubain) 10 mg IVPUSH Q2H PRN PRN Reason: Pain Last Admin: 06/08/20 14:47 Dose: 10 mg Documented by: Sodium Chloride (Saline Flush) 10 ml FLUSH ASDIRECTED PRN PRN Reason: Keep Vein Open Discontinued Medications Influenza Virus Vaccine (Pharmacy To Dose - Influenza Vaccine) 1 each IM ONETIME ONE Stop: 06/08/20 12:44 Influenza Virus Vaccine (Fluzone Quad Syringe) 60 mcg IM .ONCE ONE Stop: 06/08/20 13:01 Last Admin: 06/08/20 13:33 Dose: Not Given Documented by: Lidocaine HCl (Xylocaine 1%) 50 ml INJECT ONETIME ONE Stop: 06/08/20 12:05 Nalbuphine HCl (Nubain) 10 mg IVPUSH Q3H PRN PRN Reason: Pain (moderate 4-6) Last Admin: 06/08/20 13:06 Dose: 10 mg Documented by: - Problem List & Annotations (1) 38 weeks gestation of SNOMED Code(s): 78933614 Code(s): Z3A.38 - 38 WEEKS GESTATION OF Status: Acute Current Visit: Yes (2) Asthma affecting in third trimester SNOMED Code(s): 42525765011745, 66751122593564 Code(s): O99.513 - DISEASES OF THE RESP SYS COMP , THIRD TRIMESTER; J45.909 - UNSPECIFIED ASTHMA, UNCOMPLICATED Status: Acute Current Visit: Yes (3) Bipolar disease in SNOMED Code(s): 30272711 Code(s): O99.340 - OTH MENTAL DISORDERS COMPLICATING , UNSP TRIMESTER; F31.9 - BIPOLAR DISORDER, UNSPECIFIED Status: Acute Current Visit: Yes (4) Tobacco use during SNOMED Code(s): 972631132631853 Code(s): O99.330 - SMOKING (TOBACCO) COMPLICATING , UNSP TRIMESTER Status: Acute Current Visit: Yes (5) Vaginal delivery SNOMED Code(s): 230548356 Code(s): O80 - ENCOUNTER FOR FULL-TERM UNCOMPLICATED DELIVERY Status: Acute Current Visit: Yes - Problem List Review Problem List Initiated/Reviewed/Updated: Yes - My Orders Last 24 Hours: My Active Orders 06/08/20 12:04 Patient Status [ADT] Routine Activity as Tolerated [RC] PFP Communication Order [RC] ASDIRECTED Notify Provider [RC] PFP Notify Provider [RC] PRN Urinary Catheter Assessment [RC] ASDIRECTED Vital Signs [RC] PER UNIT ROUTINE RAPID PLASMA REAGIN,RPR [CHEM] Routine Acetaminophen [TylenoL] 650 mg PO Q4H PRN Sodium Chloride 0.9% [Saline Flush] 10 ml FLUSH ASDIRECTED PRN Electronic Heart Tones Ext w TOCO [WOMSER] Routine Electronic Heart Tones Internal [WOMSER] Per Unit Routine Peripheral IV Insertion Adult [OM.PC] Routine Resuscitation Status Routine 06/08/20 12:05 Heart Tones [RC] ASDIRECTED Peripheral IV Care [RC] . DIRECTED 06/08/20 12:15 Lactated Ringers [Ringers, Lactated] 1,000 ml IV ASDIRECTED Oxytocin/Lactated Ringers [Pitocin in LR 10 Units/1,000 ML] 10 unit in 1,000 ml IV .CONTINUOUS 06/08/20 12:46 DRUG SCREEN, URINE [URCHEM] Stat 06/08/20 14:44 Nalbuphine [Nubain] 10 mg IVPUSH Q2H PRN 06/08/20 15:44 Patient Status Manage Transfer [TRANSFER] Routine 06/08/20 Dinner Regular Diet [DIET] - Plan Plan:: Shaila Marin is a 40-year-old -0-2-6 status post normal spontaneous vaginal delivery, PPD #0 located by history of drug use, tobacco use in , advanced maternal age and grand multiparity Admit to inpatient following normal spontaneous vaginal delivery Continue Pitocin per unit protocol following delivery of placenta and lactated Ringer's until tolerating regular diet Regular diet Vitals per unit routine Ibuprofen and Tylenol for pain control Assist with breast-feeding as needed Continue to monitor lochia Anticipate discharge home on day #1 Azael Haney MD 3:55 PM 06/08/2020
[2020-06-08] MEDS: Ibuprofen 600 MG Tab PO PRN ×2 (17:23→23:07)
[2020-06-08] MEDS: Nicotine 21 MG/24 Hr Patch TRDERM SCH (20:37)
[2020-06-08] MEDS: Acetaminophen 325 MG Tab PO PRN (20:45)
[2020-06-09] MEDS: Acetaminophen 325 MG Tab PO PRN ×2 (03:13→08:55)
[2020-06-09] MEDS: Ibuprofen 600 MG Tab PO PRN ×2 (05:17→12:50)
[2020-06-09] MEDS ORDERED: Prenatal Multivitamin with Calcium/Folic Acid/Iron Tab PO SCH (09:00)
--- NOTE | 2020-06-09 09:01 | PCM.SN.2 ---
- Free Text/Narrative Note: Post Progress Note PPD #1 Subjective: Doing well overall. Ambulating without difficulty. Lochia minimal. Voiding without difficulty. Tolerating regular diet without nausea or vomiting. Pain moderately controlled with oral medications. Reports that her pain is worse with breast-feeding . Breast-feeding with minimal difficulty. Objective: Vitals: Vital Signs - 24 hr 06/08/20 06/08/20 06/09/20 12:04 20:41 03:16 Temperature 36.8 C 36.6 C Temperature [ 36.9 C Oral] Pulse, 74 88 Peripheral Pulse, 95 Peripheral [ Brachial] Respiratory 18 15 15 Rate Blood Pressure 118/81 130/76 Blood Pressure 135/87 [Upper Arm] O2 Sat by Pulse 99 100 Oximetry Physical Exam General: Alert and oriented, no acute distress Lungs: Clear to auscultation bilaterally Heart: Regular rate and rhythm Abdomen: Soft, minimal appropriate tenderness, non-distended, fundus midline, nontender, and 1 fingerbreadth below the umbilicus Extremities: No edema ASSESSMENT: 40-year-old female -0-2-6 s/p normal vaginal delivery PPD #1, complicated by history of drug use, tobacco use in , advanced maternal age, grand multiparity and bipolar disorder PLAN: Doing well Patient reports moderate control of her pain with Tylenol and ibuprofen. We will increase frequency of Tylenol to every 4 hours. Discussed with patient that I would recommend for her to continue with ibuprofen every 6 hours due to side effect profile on her kidneys. Patient states understanding Breast-feeding with minimal difficulty. Assist as needed Lochia minimal. Continue to monitor for appropriate lochia. Continue routine care Urine drug screen returned as negative Anticipate discharge home today Azael Haney MD 9:00 AM 06/09/2020
--- NOTE | 2020-06-09 09:04 | PCM.DCSUM1 ---
Discharge Summary - Hospital Course Free Text/Narrative:: - General Info Date of Service: 06/08/20 Mother's Due Date: 06/18/20 - Delivery Note Labor: Spontaneous, Augmented by ARM Delivery Outcome: Livebirth Delivery Method: Spontaneous Vaginal Delivery-Single Presentation: Right Occiput Anterior (CHRIS) Nuchal Cord: Present (and reduced after delivery of ) Anesthesia Type: None Amniotic Fluid Description: Clear Episiotomy Type: None Laceration: None Placenta: Intact, Spontaneous Cord: 3 Vessels Estimated Blood Loss: 200 : Bulb Syringe, Stimulated, Warmed, [place] Used Provider: Azael Haney Score 1 min: 8 Score 5 min: 9 Second Stage Interventions: Reports: Pushing Effectively, Pushing, Stirrups/Leg Supports Delivery Comments (Free Text/Narrative):: Stage I: Shaila Marin was admitted for spontaneous labor. On admission her cervix was dilated to 5 cm. She was GBS negative. She had artificial rupture of membranes with return of clear fluid. She progressed to complete and pushing. Stage II: On 06/08/2020 she had a normal vaginal delivery of a live female at 15:24. Apgars of 8 & 9. Weight of 2550 g (5 lbs 9.9 oz). Length of 18 inches. There was a single nuchal cord that was unable to be reduced prior to delivery. Infant was delivered through the nuchal cord and reduced after delivery. was delivered in CHRIS position. The cord was doubly clamped and cut by father the infant. was placed on mother's abdomen. Stage III: She had a spontaneous delivery of an intact placenta in Manjinder presentation. Three vessel cord. She was given pitocin and fundal massage. She had no lacerations. Mom and baby were stable to recovery. EBL of 200 mL. HPI Initial Comments: - General Info Date of Service: 06/08/20 Mother's Due Date: 06/18/20 - Delivery Note Labor: Spontaneous, Augmented by ARM Delivery Outcome: Livebirth Delivery Method: Spontaneous Vaginal Delivery-Single Presentation: Right Occiput Anterior (CHRIS) Nuchal Cord: Present (and reduced after delivery of infant) Anesthesia Type: None Amniotic Fluid Description: Clear Episiotomy Type: None Laceration: None Placenta: Intact, Spontaneous Cord: 3 Vessels Estimated Blood Loss: 200 : Bulb Syringe, Stimulated, Warmed, [place] Used Provider: Azael Haney Score 1 min: 8 Score 5 min: 9 Second Stage Interventions: Reports: Pushing Effectively, Pushing, Stirrups/Leg Supports Delivery Comments (Free Text/Narrative):: Stage I: Shaila Marin was admitted for spontaneous labor. On admission her cervix was dilated to 5 cm. She was GBS negative. She had artificial rupture of membranes with return of clear fluid. She progressed to complete and pushing. Stage II: On 06/08/2020 she had a normal vaginal delivery of a live female at 15:24. Apgars of 8 & 9. Weight of 2550 g (5 lbs 9.9 oz). Length of 18 inches. There was a single nuchal cord that was unable to be reduced prior to delivery. was delivered through the nuchal cord and reduced after delivery. Infant was delivered in CHRIS position. The cord was doubly clamped and cut by father the infant. was placed on mother's abdomen. Stage III: She had a spontaneous delivery of an intact placenta in Manjinder presentation. Three vessel cord. She was given pitocin and fundal massage. She had no lacerations. Mom and baby were stable to recovery. EBL of 200 mL. Brief History: - General Info. Date of Service: 06/08/20. Mother's Due Date: 06/18/20. - Delivery Note. Labor: Spontaneous, Augmented by ARM. Delivery Outcome: Livebirth. Infant Delivery Method: Spontaneous Vaginal Delivery- Single. Presentation: Right Occiput Anterior (CHRIS). Nuchal Cord: Present (and reduced after delivery of ). Anesthesia Type: None. Amniotic Fluid Description: Clear. Episiotomy Type: None. Laceration: None. Placenta: Intact, Spontaneous. Cord: 3 Vessels. Estimated Blood Loss: 200. [place]: Bulb Syringe, Stimulated, Warmed, [place] Used. Provider: Azael Haney. Score 1 min: 8. Score 5 min: 9. Second Stage Interventions: Reports: Pushing Effectively, Pushing, Stirrups/Leg Supports. Delivery Comments (Free Text/Narrative):: Stage I: Shaila Marin was admitted for spontaneous labor. On admission her cervix was dilated to 5 cm. She was GBS negative. She had artificial rupture of membranes with return of clear fluid. She progressed to complete and pushing. Stage II: On 06/08/2020 she had a normal vaginal delivery of a live female at 15:24. Apgars of 8 & 9. Weight of 2550 g (5 lbs 9.9 oz). Length of 18 inches. There was a single nuchal cord that was unable to be reduced prior to delivery. was delivered through the nuchal cord and reduced after delivery. Infant was delivered in CHRIS position. The cord was doubly clamped and cut by father the . was placed on mother's abdomen. Stage III: She had a spontaneous delivery of an intact placenta in Manjinder presentation. Three vessel cord. She was given pitocin and fundal massage. She had no lacerations. Mom and baby were stable to recovery. EBL of 200 mL. Diagnosis: Stroke: No - Discharge Data Discharge Date: 06/09/20 Discharge Disposition: Home, Self-Care 01 Condition: Good - Referral to Home Health Primary Care Physician: Sadaf Winston MD - Discharge Diagnosis/Problem(s) (1) 38 weeks gestation of SNOMED Code(s): 60089628 ICD Code: Z3A.38 - 38 WEEKS GESTATION OF Status: Acute Current Visit: Yes (2) Asthma affecting in third trimester SNOMED Code(s): 25927285194703, 15398799846463 ICD Code: O99.513 - DISEASES OF THE RESP SYS COMP , THIRD TRIMESTER; J45.909 - UNSPECIFIED ASTHMA, UNCOMPLICATED Status: Acute Current Visit: Yes (3) Bipolar disease in SNOMED Code(s): 12424966 ICD Code: O99.340 - OTH MENTAL DISORDERS COMPLICATING , UNSP TRIMESTER; F31.9 - BIPOLAR DISORDER, UNSPECIFIED Status: Acute Current Visit: Yes (4) Tobacco use during SNOMED Code(s): 200914596981080 ICD Code: O99.330 - SMOKING (TOBACCO) COMPLICATING , UNSP TRIMESTER Status: Acute Current Visit: Yes (5) Vaginal delivery SNOMED Code(s): 132582360 ICD Code: O80 - ENCOUNTER FOR FULL-TERM UNCOMPLICATED DELIVERY Status: Acute Current Visit: Yes - Patient Summary/Data Complications: None 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 On admission her cervix was dilated to 5 cm. She was GBS negative. She had artificial rupture of membranes with clear fluid. She progressed to complete and began pushing. On 06/08/2020 she had a normal vaginal delivery of a live female at 15:24. Apgars of 8 and 9. Weight of 2550 g (5 pounds 9.9 ounces). Her course was uneventful. Her pain was well controlled and she had minimal lochia. She was ambulating, tolerating a regular diet and voiding normally. She was breast- feeding with minimal difficulty. She was afebrile and her hematocrit was 38.5 on admission. She desired to be discharged home on the morning of PPD #1. Her blood type is O+. - Patient Instructions Diet: Regular Diet as Tolerated Activity: Apply Ice, As Tolerated Activity, Other: Nothing in the vagina for 6 weeks Driving: May Drive Today Showering/Bathing: May Shower Notify Provider of: Fever, Increased Pain, Swelling and Redness, Drainage, Nausea and/or Vomiting Other/Special Instructions: Please contact your physician's office if you have heavy vaginal bleeding enough to soak a pad in less than an hour for several hours. Monitor for any signs of an infection in the breasts with severe pain or warmth of the breast. - Discharge Plan *PRESCRIPTION DRUG MONITORING PROGRAM REVIEWED*: Not Applicable *COPY OF PRESCRIPTION DRUG MONITORING REPORT IN PATIENT MACO: Not Applicable Home Medications: Home Meds Albuterol Sulfate [Albuterol Sulfate Hfa] 2 puff IH Q4H PRN 07/25/19 [History] Prenat 115/Iron Fum/Folic/Dss [ 19 Tablet] 1 tab PO DAILY 12/15/19 [History] Acetaminophen [Tylenol] 650 mg PO Q4H PRN tablet 06/09/20 [Rx] Benzocaine/Menthol [Dermoplast Pain Relief [place]] 1 spray TOP ASDIRECTED PRN canister 06/09/20 [Rx] Docusate Sodium [Colace] 100 mg PO BID PRN cap 06/09/20 [Rx] Hydrocortisone Acetate [Anucort-HC] 25 mg RECTAL BID PRN supp 06/09/20 [Rx] Ibuprofen [Motrin] 600 mg PO Q6H PRN tablet 06/09/20 [Rx] witch Rober [Tucks] 1 pad TOP ASDIRECTED PRN pad 06/09/20 [Rx] Patient Handouts: Care After Vaginal Delivery Referrals: Sadaf Winston MD [Primary Care Provider] - (Follow-up for routine visit in 4 to 6 weeks or earlier as needed.) - Discharge Summary/Plan Comment DC Time >30 min.: No - Patient Data Vitals - Most Recent: Last Vital Signs Temp 36.6 C 06/09/20 03:16 Pulse 88 06/09/20 03:16 Resp 15 06/09/20 03:16 BP 130/76 06/09/20 03:16 Pulse Ox 100 06/09/20 03:16 Weight - Most Recent: 69.853 kg I&O - Last 24 hours: Intake & Output 06/08/20 06/09/20 06/09/20 22:59 06:59 14:59 Intake Total 1000 Balance 1000 Lab Results - Last 24 hrs: Laboratory Results - last 24 hr 06/08/20 06/08/20 06/09/20 Range/Units 12:00 12:24 02:45 WBC 7.65 (3.98-10.04) K/mm3 RBC 4.44 (3.98-5.22) M/mm3 Hgb 12.8 (11.2-15.7) gm/dl Hct 38.5 (34.1-44.9) % MCV 86.7 (79.4-94.8) fl MCH 28.8 (25.6-32.2) pg MCHC 33.2 (32.2-35.5) g/dl RDW Std Deviation 43.6 (36.4-46.3) fL Plt Count 312 (182-369) K/mm3 MPV 10.5 (9.4-12.3) fl Neut % (Auto) 64.6 (34.0-71.1) % Lymph % (Auto) 23.3 (19.3-51.7) % [place] % (Auto) 10.6 (4.7-12.5) % Eos % (Auto) 0.8 (0.7-5.8) Baso % (Auto) 0.3 (0.1-1.2) % Neut # (Auto) 4.95 (1.56-6.13) K/mm3 Lymph # (Auto) 1.78 (1.18-3.74) K/mm3 [place] # (Auto) 0.81 H (0.24-0.36) K/mm3 Eos # (Auto) 0.06 (0.04-0.36) K/mm3 Baso # (Auto) 0.02 (0.01-0.08) K/mm3 Urine Opiates Screen Negative (STHIAA=959) Ur Buprenorphine Scrn Negative (CUTOFF=10) Ur Oxycodone Screen Negative (YFN6AG=694) Urine Methadone Screen Negative (JSYQMC=372) Ur Propoxyphene Screen Negative (BVULOL=461) Ur Barbiturates Screen Negative (OPQMQK=067) Ur Tricyclics Screen Negative (SCHHEH=717) Ur Phencyclidine Scrn Negative (CUTOFF=25) Ur Amphetamine Screen Negative (GYQVTM=709) U Methamphetamines Scrn Negative (YQRJZQ=105) U Benzodiazepines Scrn Negative (VKNFGN=329) U Cocaine Metab Screen Negative (OJCVHQ=085) U Marijuana (THC) Screen Negative (CUTOFF=50) SARS-CoV-2 RNA (BRE) Negative (NEGATIVE) Med Orders - Current: Current Medications Acetaminophen (Tylenol) 650 mg PO Q6H PRN PRN Reason: mild pain or fever Last Admin: 06/09/20 08:55 Dose: 650 mg Documented by: Benzocaine/Menthol (Dermoplast Pain Relief [place]) 0 gm TOP ASDIRECTED PRN PRN Reason: Perineal Comfort Measure Docusate Sodium (Colace) 100 mg PO BID PRN PRN Reason: Constipation Hydrocortisone Acetate (Anucort-Hc) 25 mg RECTAL BID PRN PRN Reason: Hemorrhoid pain Oxytocin/Lactated Ringer's (Pitocin In Lr 10 Units/1,000 Ml) 10 unit in 1,000 mls @ 100 mls/hr IV TITRATE RANDY; Protocol Ibuprofen (Motrin) 600 mg PO Q6H PRN PRN Reason: Mild pain or fever Last Admin: 06/09/20 05:17 Dose: 600 mg Documented by: Magnesium Hydroxide (Milk Of Magnesia) 30 ml PO BEDTIME PRN PRN Reason: Constipation Nicotine (Habitrol) 21 mg TRDERM DAILY RANDY Last Admin: 06/08/20 20:37 Dose: 21 mg Documented by: Prenat Multivit/[place]/Iron/Folic Ac ( Plus Iron) 1 each PO DAILY RANDY Last Admin: 06/09/20 08:55 Dose: 1 each [facility]ed [facility]: [facility] 1 pad TOP ASDIRECTED PRN PRN Reason: Perineal Comfort Measure Discontinued Medications Acetaminophen (Tylenol) 650 mg PO Q4H PRN PRN Reason: Pain (Mild 1-3) and fever Oxytocin/Lactated Ringer's (Pitocin In Lr 10 Units/1,000 Ml) 10 unit in 1,000 mls @ 100 mls/hr IV .CONTINUOUS [facility] Last Admin: 06/08/20 15:25 Dose: 500 mls/hr Documented by: Lactated Ringer's (Ringers, Lactated) 1,000 mls @ 100 mls/hr IV ASDIRECTED [facility] Influenza Virus Vaccine (Pharmacy To Dose - Influenza Vaccine) 1 each IM ONETIME ONE Stop: 06/08/20 12:44 Influenza Virus Vaccine (Fluzone Quad [id number] Syringe) 60 mcg IM .ONCE ONE Stop: 06/08/20 13:01 Last Admin: 06/08/20 13:33 Dose: Not Given Documented by: Lidocaine HCl (Xylocaine 1%) 50 ml INJECT ONETIME ONE Stop: 06/08/20 12:05 Last Admin: 06/08/20 17:25 Dose: Not Given Documented by: Nalbuphine HCl (Nubain) 10 mg IVPUSH Q3H PRN PRN Reason: Pain (moderate 4-6) Last Admin: 06/08/20 13:06 Dose: 10 mg Documented by: Nalbuphine HCl (Nubain) 10 mg IVPUSH Q2H PRN PRN Reason: Pain Last Admin: 06/08/20 14:47 Dose: 10 mg Documented by: Sodium Chloride (Saline Flush) 10 ml FLUSH ASDIRECTED PRN PRN Reason: Keep Vein Open
[2020-06-09] MEDS: Nicotine 21 MG/24 Hr Patch TRDERM SCH (11:31)
== END 2020-06-09 17:30 | disposition home or self-care (01) | DRG 807 ==
LOC: JD.OB 11:46 → OBSVTOIN 15:24 → JD.OB 15:32 → JD.MS 06-09 17:29 → UNDODISIN 06-09 17:30
PROVIDERS: ADMIT Obstetrics & Gynecology; ATTEND Obstetrics & Gynecology
PROC: 10E0XZZ Delivery of Products of Conception, External Approach (ICD-10-PCS; principal; 2020-06-08)
PROC: 10907ZC Drainage of Amniotic Fluid, Therapeutic from Products of Conception, Via Natural or Artificial Opening (ICD-10-PCS; 2020-06-08)
DX: O69.81X0 Labor and delivery complicated by cord around neck, without compression, not applicable or unspecified (principal); Z37.0 Single live birth; Z3A.38 38 weeks gestation of pregnancy; O99.334 Smoking (tobacco) complicating childbirth; F17.210 Nicotine dependence, cigarettes, uncomplicated; O99.52 Diseases of the respiratory system complicating childbirth; J45.909 Unspecified asthma, uncomplicated; Z88.5 Allergy status to narcotic agent; Z88.8 Allergy status to other drugs, medicaments and biological substances; Z20.828 Contact with and (suspected) exposure to other viral communicable diseases
CPT/HCPCS: 36415; 59025; 59409; 80306; 85025; A9270-GY; J2300; J2590; U0002

== ENCOUNTER 2020-08-17 20:07 | Emergency (ER) | payer MEDICARE, MEDICAID ==
[2020-08-17] MEDS ORDERED: Metoclopramide 10 MG/2 ML SDV IVPUSH ONE (20:27)
[2020-08-17] MEDS ORDERED: Sodium Chloride 0.9% 1,000 ML IV ONE (20:27)
[2020-08-17] MEDS ORDERED: Sodium Chloride 0.9% 10 ML Syringe FLUSH PRN (20:27)
[2020-08-17] MEDS ORDERED: diphenhydrAMINE 50 MG/ML SDV IVPUSH ONE (20:27)
[2020-08-17] MEDS ORDERED: Acetaminophen 325 MG Tab PO ONE (20:32)
--- NOTE | 2020-08-17 20:33 | EDM.PDOC ---
ED HPI GENERAL MEDICAL PROBLEM - General Chief Complaint: Headache Stated Complaint: HEADACHE Time Seen by Provider: 08/17/20 20:17 Source of Information: Reports: Patient, RN Notes Reviewed History Limitations: Reports: No Limitations - History of Present Illness INITIAL COMMENTS - FREE TEXT/NARRATIVE: Patient is a 40-year-old female who presents to the ED for her headache. She notes that this is been present for the past few days. She notes this is a kind of an allover pressure in her head, and emanates from her neck. She also notes a history of spinal canal stenosis, and her lumbar spine and in her cervical spine. She states that this headache came on yesterday, while she was driving and it just came out of nowhere. She had some Tylenol yesterday this seemed to work at that time, she woke up this morning again with her head throbbing. She states that she went to the bathroom, and had some sort of vaginal bleeding, but it was a light brownish in color. She thought this was odd as she just finished up her menses 1-1/2 weeks ago, and it lasted for 2 weeks. She most recently got a Depo shot as well. Patient notes that she has a lot of symptoms of as well, she wakes up and she is just ravenous. She also states she is very emotional, she is happy to sad in a matter of seconds. She is a , with 2 previous spontaneous miscarriages. Patient's had no fevers or chills, cough or shortness of breath, nausea/vomiting/diarrhea. She is light and sound sensitive, she states that when the nurse turn the lights off while she was waiting in the room, this did seem to relieve the pressure quite a bit. Headache Pain Score (Numeric/FACES): 8 - Related Data Allergies Allergy/AdvReac Type Severity Reaction Status Date / Time morphine Allergy Itching Verified 08/17/20 20:15 doxycycline AdvReac Nausea and Verified 08/17/20 20:15 Vomiting lactose AdvReac Stomach Verified 08/17/20 20:15 Ache promethazine AdvReac Headache Verified 08/17/20 20:15 dial soap Allergy Rash Uncoded 06/08/20 13:38 Home Meds: Home Meds Albuterol Sulfate [Albuterol Sulfate Hfa] 2 puff IH Q4H PRN 07/25/19 [History] Past Medical History HEENT History: Reports: Impaired Vision Other HEENT History: wears glasses Cardiovascular History: Reports: Hypertension Respiratory History: Reports: Asthma [employer]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: , 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) : 8 Para: 6 Musculoskeletal History: Reports: Other (See Below) Other Musculoskeletal History: spinal stenosis;arthritis to neck and spurs to neck;scoliosis Neurological History: Reports: Neuropathy, Peripheral Psychiatric History: Reports: Bipolar Social & Family History - Family History Family Medical History: No Pertinent Family History Cardiac: Reports: [place] Neurological: Reports: CVA Psychiatric: Reports: Autism Oncologic: Reports: Breast - Tobacco Use Tobacco Use Status *Q: Never Tobacco User - Caffeine Use Caffeine Use: Reports: None - Recreational Drug Use Recreational Drug Use: No ED ROS GENERAL - Review of Systems Review Of Systems: Comprehensive ROS is negative, except as noted in HPI. - Physical Exam Exam: See Below Exam Limited By: No Limitations General Appearance: Alert, WD/WN, No Apparent Distress Respiratory/Chest: No Respiratory Distress, Lungs Clear, Normal Breath Sounds, No Accessory Muscle Use, Chest Non-Tender Cardiovascular: Normal Peripheral Pulses, Regular Rate, Rhythm, No Edema GI/Abdominal: Normal Bowel Sounds, Soft, Non-Tender, No Distention, No Mass (Female) Exam: Deferred Neuro Exam (Abbreviated): Alert, Oriented, Normal Cognition, No Motor/Sensory Deficits Extremities: Normal Inspection, Normal Capillary Refill Psychiatric: Normal Affect, Normal Mood Skin Exam: Warm, Dry, Intact, Normal Color, No Rash Course - Vital Signs Last Recorded V/S: Last Vital Signs Temp 97.8 F 08/17/20 20:13 Pulse 74 08/17/20 20:13 Resp 16 08/17/20 20:13 BP 146/112 H 08/17/20 20:13 Pulse Ox 99 08/17/20 20:13 - Orders/Labs/Meds Orders: Active Orders 24 hr Category Date Time Status Peripheral IV Care [RC] . DIRECTED Care 08/17/20 20:27 Ordered Sodium Chloride 0.9% [Normal Saline] 1,000 ml Med 08/17/20 20:27 Active IV ASDIRECTED Sodium Chloride 0.9% [Saline Flush] Med 08/17/20 20:27 Active 10 ml FLUSH ASDIRECTED PRN Peripheral IV Insertion Adult [OM.PC] Routine Oth 08/17/20 20:27 Ordered Medication Orders Sodium Chloride (Normal Saline) 1,000 mls @ 999 mls/hr IV ASDIRECTED ONE Stop: 08/17/20 21:27 Last Admin: 08/17/20 20:44 Dose: 999 mls/hr Documented by: MERLIN Sodium Chloride (Saline Flush) 10 ml FLUSH ASDIRECTED PRN PRN Reason: Keep Vein Open Last Admin: 08/17/20 20:45 Dose: 10 ml Documented by: MERLIN Labs: Laboratory Tests 08/17/20 08/17/20 08/17/20 Range/Units 20:40 20:40 20:40 WBC 6.70 (3.98-10.04) K/mm3 RBC 5.06 (3.98-5.22) M/mm3 Hgb 14.2 (11.2-15.7) gm/dl Hct 43.1 (34.1-44.9) % MCV 85.2 (79.4-94.8) fl MCH 28.1 (25.6-32.2) pg MCHC 32.9 (32.2-35.5) g/dl RDW Std Deviation 50.2 H (36.4-46.3) fL Plt Count 310 (182-369) K/mm3 MPV 9.9 (9.4-12.3) fl Neut % (Auto) 26.1 L (34.0-71.1) % Lymph % (Auto) 55.1 H (19.3-51.7) % [place] % (Auto) 7.3 (4.7-12.5) % Eos % (Auto) 10.7 H (0.7-5.8) Baso % (Auto) 0.7 (0.1-1.2) % Neut # (Auto) 1.74 (1.56-6.13) K/mm3 Lymph # (Auto) 3.69 (1.18-3.74) K/mm3 [place] # (Auto) 0.49 H (0.24-0.36) K/mm3 Eos # (Auto) 0.72 H (0.04-0.36) K/mm3 Baso # (Auto) 0.05 (0.01-0.08) K/mm3 Sodium 140 (136-145) mEq/L Potassium 3.7 (3.5-5.1) mEq/L Chloride 105 (98-107) mEq/L Carbon Dioxide 24 (21-32) mEq/L Anion Gap 14.7 (5-15) BUN 17 (7-18) mg/dL Creatinine 1.2 H (0.55-1.02) mg/dL Est Cr Clr Drug Dosing TNP Estimated GFR (MDRD) > 60 (>60) mL/min BUN/Creatinine Ratio 14.2 (14-18) Glucose 88 (74-106) mg/dL Calcium 9.0 (8.5-10.1) mg/dL Magnesium 2.1 (1.8-2.4) mg/dl Total Bilirubin 0.5 (0.2-1.0) mg/dL AST 12 L (15-37) U/L ALT 22 (14-59) U/L Alkaline Phosphatase 83 (46-116) U/L Total Protein 8.1 (6.4-8.2) g/dl Albumin 4.2 (3.4-5.0) g/dl Globulin 3.9 gm/dL Albumin/Globulin Ratio 1.1 (1-2) HCG, Qual Negative (NEGATIVE) Meds: Medications Generic Name Dose Route Start Last Admin Trade Name Freq PRN Reason Stop Dose Admin Sodium Chloride 1,000 mls @ 999 mls/hr 08/17/20 20:27 08/17/20 20:44 Normal Saline IV 08/17/20 21:27 999 mls/hr ASDIRECTED ONE Administration Sodium Chloride 10 ml 08/17/20 20:27 08/17/20 20:45 Saline Flush FLUSH 10 ml ASDIRECTED PRN Administration Keep Vein Open Discontinued Medications Generic Name Dose Route Start Last Admin Trade Name Freq PRN Reason Stop Dose Admin Acetaminophen 650 mg 08/17/20 20:32 08/17/20 20:46 Tylenol PO 08/17/20 20:33 650 mg NOW ONE Administration Diphenhydramine HCl 25 mg 08/17/20 20:27 08/17/20 20:46 Benadryl IVPUSH 08/17/20 20:28 25 mg ONETIME ONE Administration Metoclopramide HCl 10 mg 08/17/20 20:27 08/17/20 20:44 Reglan IVPUSH 08/17/20 20:28 10 mg ONETIME ONE Administration - Re-Assessments/Exams Free Text/Narrative Re-Assessment/Exam: 08/17/20 20:32 Patient presents to the ED for her headache, she is also concerned she might be . We will get some lab work with IV stick, give her some basic fluids, Tylenol, IV Reglan and Benadryl for headache management. 08/17/20 21:15 The patient did report pretty good relief of her headache with the meds given. Labs are within normal limits and she is not , I did relay this information to the patient, this does relieve her. She states she is very tired and would like to go home. This is fine with me. Departure - Departure Time of Disposition: 21:16 Disposition: Home, Self-Care 01 Condition: Good Clinical Impression: Tension-type headache - Discharge Information *PRESCRIPTION DRUG MONITORING PROGRAM REVIEWED*: No *COPY OF PRESCRIPTION DRUG MONITORING REPORT IN PATIENT MACO: No Instructions: Tension Headache, Adult, [id number] Referrals: Ailyn Medrano MD [Primary Care Provider] - Forms: ED Department Discharge Additional Instructions: You were evaluated in the ED for your headache. You were given a combination of medications and IV fluid for management. This did seem to provide you pretty good relief of your symptoms. Recommend that you go home and rest in a quiet, darkened room. Try also to keep well hydrated. Labs done today are all within normal limits, you are not at today's ER visit. Please return to the ED if your symptoms should change or worsen. Sepsis Event Note (ED) - Evaluation Sepsis Screening Result: No Definite Risk - Focused Exam Vital Signs: Vital Signs Temp Pulse Resp BP Pulse Ox 08/17/20 20:13 97.8 F 74 16 146/112 H 99 - My Orders Last 24 Hours: My Active Orders 08/17/20 20:27 Peripheral IV Care [RC] . DIRECTED Sodium Chloride 0.9% [Normal Saline] 1,000 ml IV ASDIRECTED Sodium Chloride 0.9% [Saline Flush] 10 ml FLUSH ASDIRECTED PRN Peripheral IV Insertion Adult [OM.PC] Routine - Assessment/Plan Last 24 Hours: My Active Orders 08/17/20 20:27 Peripheral IV Care [RC] . DIRECTED Sodium Chloride 0.9% [Normal Saline] 1,000 ml IV ASDIRECTED Sodium Chloride 0.9% [Saline Flush] 10 ml FLUSH ASDIRECTED PRN Peripheral IV Insertion Adult [OM.PC] Routine
== END 2020-08-17 21:45 | disposition home or self-care (01) ==
LOC: JD.ED 20:07
DX: G44.209 Tension-type headache, unspecified, not intractable (principal); I10 Essential (primary) hypertension; J45.909 Unspecified asthma, uncomplicated; Z88.8 Allergy status to other drugs, medicaments and biological substances; Z88.5 Allergy status to narcotic agent; Z88.1 Allergy status to other antibiotic agents; Z91.048 Other nonmedicinal substance allergy status
CPT/HCPCS: 36415; 80053; 83735; 84703; 85025; 96374; 96375; 99284; A9270; J1200; J2765; J7030; 99283

== ENCOUNTER 2020-08-18 19:47 | Emergency (ER) | payer MEDICARE, MEDICAID ==
--- NOTE | 2020-08-18 19:52 | EDM.PDOC ---
ED HPI GENERAL MEDICAL PROBLEM - General Chief Complaint: Headache Stated Complaint: HEADACHE Time Seen by Provider: 08/18/20 19:51 - History of Present Illness INITIAL COMMENTS - FREE TEXT/NARRATIVE: 40-year-old female presents the emergency room with a headache. This is a typical headache for her except this 1 is been going on for 3 days now. Patient was seen here yesterday and was treated and thought she was doing better however her headache promptly returned. The patient believes she is in due part to her blood pressure which shows systolics in the 160s when I was in there. Patient denies any fevers or chills has no neck pain. She has marked photophobia and is sensitive to loud noises. Currently the patient is not on antihypertensive medication however has been on lisinopril in the past. Head Pain Score (Numeric/FACES): 10 - Related Data Allergies Allergy/AdvReac Type Severity Reaction Status Date / Time morphine Allergy Itching Verified 08/18/20 20:06 doxycycline AdvReac Nausea and Verified 08/18/20 20:06 Vomiting lactose AdvReac Stomach Verified 08/18/20 20:06 Ache promethazine AdvReac Headache Verified 08/18/20 20:06 dial soap Allergy Rash Uncoded 06/08/20 13:38 Home Meds: Home Meds Albuterol Sulfate [Albuterol Sulfate Hfa] 2 puff IH Q4H PRN 07/25/19 [History] Past Medical History HEENT History: Reports: Impaired Vision Other HEENT History: wears glasses Cardiovascular History: Reports: Hypertension Respiratory History: Reports: Asthma 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: , 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) Musculoskeletal History: Reports: Other (See Below) Other Musculoskeletal History: spinal stenosis;arthritis to neck and spurs to neck;scoliosis Neurological History: Reports: Neuropathy, Peripheral Psychiatric History: Reports: Bipolar Social & Family History - Family History Family Medical History: No Pertinent Family History Cardiac: Reports: CT Neurological: Reports: CVA Psychiatric: Reports: Autism Oncologic: Reports: Breast - Caffeine Use Caffeine Use: Reports: None ED ROS GENERAL - Review of Systems Review Of Systems: See Below Constitutional: Denies: Fever, Chills, Night Sweats, Diaphoresis HEENT: Reports: Other (Photophobia and is sensitive to loud noises). Denies: No Symptoms Respiratory: Reports: No Symptoms Cardiovascular: Reports: No Symptoms Endocrine: Reports: No Symptoms GI/Abdominal: Reports: Nausea. Denies: Abdominal Pain : Reports: No Symptoms Musculoskeletal: Reports: No Symptoms. Denies: Neck Pain Skin: Reports: No Symptoms Neurological: Reports: Headache. Denies: Confusion, Dizziness, Numbness, Seizure, Difficulty Walking Psychiatric: Reports: No Symptoms Hematologic/Lymphatic: Reports: No Symptoms - Physical Exam Exam: See Below Exam Limited By: No Limitations General Appearance: Alert, No Apparent Distress, Other (She is photophobic) Ears: Normal External Exam, Normal Canal, Hearing Grossly Normal, Normal TMs Nose: Normal Inspection, Normal Mucosa, No Blood Throat/Mouth: Normal Inspection, Normal Lips, Normal Teeth, Normal Gums, Normal Oropharynx, Normal Voice, No Airway Compromise Head Exam: Atraumatic Neck: Normal Inspection, Supple, Non-Tender, Full Range of Motion. No: Lymphadenopathy (L), Lymphadenopathy (R) Respiratory/Chest: No Respiratory Distress, Lungs Clear, Normal Breath Sounds Cardiovascular: Regular Rate, Rhythm, No Edema, No Murmur GI/Abdominal: Normal Bowel Sounds, Soft, Non-Tender, No Organomegaly Neuro Exam (Abbreviated): Alert, Oriented, Normal Cognition, No Motor/Sensory Deficits, Other (5312 grossly intact all muscle groups in upper extremities are equal and appropriate bilaterally deep tendon reflexes at the brachioradialis are equal, appropriate bilaterally) Course - Vital Signs Last Recorded V/S: Last Vital Signs Temp 37.2 C 08/18/20 20:04 Pulse 89 08/18/20 20:30 Resp 18 08/18/20 20:30 BP 164/105 H 08/18/20 20:30 Pulse Ox 100 08/18/20 20:30 - Orders/Labs/Meds Meds: Medications Discontinued Medications Generic Name Dose Route Start Last Admin Trade Name Freq PRN Reason Stop Dose Admin Diphenhydramine HCl 50 mg 08/18/20 20:18 08/18/20 20:31 Benadryl IVPUSH 08/18/20 20:19 50 mg ONETIME ONE Administration Lactated Ringer's 1,000 mls @ 999 mls/hr 08/18/20 20:18 08/18/20 20:28 Ringers, Lactated IV 08/18/20 21:18 999 mls/hr .BOLUS ONE Administration Metoclopramide HCl 10 mg 08/18/20 20:18 08/18/20 20:29 Reglan IVPUSH 08/18/20 20:19 10 mg ONETIME ONE Administration - Re-Assessments/Exams Free Text/Narrative Re-Assessment/Exam: 08/18/20 21:48 After receiving 50 mg of Benadryl 10 mg of Reglan with a liter of LR the patient feels much better and would like to go home and get some sleep. We will discharge at this time. While here in the emergency department patient's blood pressure came down nicely into the 130s systolic. Departure - Departure Time of Disposition: 21:48 Disposition: Home, Self-Care 01 Clinical Impression: Migrainous headache without aura - Discharge Information Referrals: PCP,None [Primary Care Provider] - Forms: ED Department Discharge Additional Instructions: Return to the emergency room with any questions problems or worsening symptoms. Go straight home and get a good nights rest. Follow-up with your regular physician to follow your blood pressure and discuss your headaches with. The phone number to the hospital clinic is [phone] Sepsis Event Note (ED) - Focused Exam Vital Signs: Vital Signs Temp Pulse Resp BP Pulse Ox 08/18/20 20:30 89 18 164/105 H 100 08/18/20 20:04 37.2 C 95 16 165/112 H 99
[2020-08-18] MEDS ORDERED: Lactated Ringers 1,000 ML IV ONE (20:18)
[2020-08-18] MEDS ORDERED: diphenhydrAMINE 50 MG/ML SDV IVPUSH ONE (20:18)
[2020-08-18] MEDS ORDERED: Metoclopramide 10 MG/2 ML SDV IVPUSH ONE (20:18)
== END 2020-08-18 22:03 | disposition home or self-care (01) ==
LOC: JD.ED 19:47
DX: G43.009 Migraine without aura, not intractable, without status migrainosus (principal); I10 Essential (primary) hypertension; J45.909 Unspecified asthma, uncomplicated; G62.9 Polyneuropathy, unspecified; Z88.5 Allergy status to narcotic agent; Z88.1 Allergy status to other antibiotic agents; Z91.048 Other nonmedicinal substance allergy status; Z88.8 Allergy status to other drugs, medicaments and biological substances
CPT/HCPCS: 96374; 96375; 99283; J1200; J2765; J7120; 99284

== ENCOUNTER 2020-09-17 06:54 | Emergency (ER) | payer MEDICARE, MEDICAID ==
--- NOTE | 2020-09-17 07:19 | EDM.PDOC ---
ED HPI GENERAL MEDICAL PROBLEM - General Chief Complaint: Abdominal Pain Stated Complaint: [facility] Time Seen by Provider: 09/17/20 07:19 Source of Information: Reports: Patient History Limitations: Reports: No Limitations - History of Present Illness INITIAL COMMENTS - FREE TEXT/NARRATIVE: 40-year-old female amount of -Chinese descent presents to the ED with diffuse suprapubic lower abdominal pain radiating down into the anterior vagina perineum and rectal area. She states similar type pain has occurred the last 3 mornings. This morning it seemed to start after a bowel movement with which she except had a tremendous urgency to defecate with. She cannot verify that the last 3 mornings have been related all to defecation. She states she has had per sistent bleeding per vagina on a daily basis mostly with some bright red blood and lately darker colored blood her older menses looking blood with bright red blood per vagina since of her baby 3 months ago. She is avoided intercourse. She cannot tell me therefore that there is pain with intercourse. She is no longer breast-feeding. She reports that she has received a Depo shot for control. She states bowel function is usually only every 5 to 7 days. Usually with mild amount of passing stool due to constipation. She does not appreciate any blood per rectum with wiping but she states this morning it was dark and she did look. She states pain is sharp stabbing and tenesmus-like with spasm in the rectal vault and lower abdomen. It lasted for about a half an hour yesterday morning in the morning before. This morning is more persistent with persistent pain even at this time. She states if she lies will still it seems to slowly rosalina. She is 2 para 2. Denies any previous abdominal surgery. No associated nausea or vomiting. No dysuria urgency or frequency. Passage of bowel movement this morning came with a strong urge to defecate and stool expulsion was rather explosive but no diarrhea. Onset: Sudden Onset Date: 09/15/20 (Reports is the third day in a row she is experienced this sharp stabbing pain in the rectum and vagina. Worse this morning after having a bowel movement.) Duration: Minutes:, Constant, Intermittent (Pain in the rectum and vagina started 3 days ago and has been intermittent worse in the mornings and seemed to last about half an hour. This morning pain is worse than what she has experienced in the past 2 days and is lasting longer. The last few days it goes away after about a half an hour she will lies will still for a while.) Location: Reports: Other (Pain suprapubic lower abdomen radiating to the vagina and rectal/perineal area.) Quality: Reports: Ache, Sharp (Is mostly sharp and stabbing but is a deep aching pain as well), Stabbing Severity: Moderate Improves with: Reports: Other (Last few days it has gone away with time usually about a half an hour or more. 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 (see below) (None.) Abdomen Pain Score (Numeric/FACES): 10 - Related Data Allergies Allergy/AdvReac Type Severity Reaction Status Date / Time morphine Allergy Itching Verified 09/17/20 07:06 doxycycline AdvReac Nausea and Verified 09/17/20 07:06 Vomiting lactose AdvReac Stomach Verified 09/17/20 07:06 Ache promethazine AdvReac Headache Verified 09/17/20 07:06 dial soap Allergy Rash Uncoded 09/17/20 07:06 Home Meds: Home Meds Albuterol Sulfate [Albuterol Sulfate Hfa] 2 puff IH Q4H PRN 07/25/19 [History] Budesonide/Formoterol [Symbicort 160-4.5 MCG] 1 puff INH Q6H PRN 09/17/20 [History] Escitalopram [Lexapro] 1 tab PO DAILY 09/17/20 [History] Fluticasone/Vilanterol [Breo Ellipta 100-25 MCG Inhalation Kit] 1 puff INH DAILY 09/17/20 [History] Hydrocortisone Acetate [Anusol-Hc] 25 mg RC DAILY #6 supp.rect 09/17/20 [Rx] Labetalol [Normodyne] 1 tab PO DAILY 09/17/20 [History] Sennosides/Docusate Sodium [Senna-Docusate Sodium Tablet] 1 tab PO ASDIRECTED PRN 09/17/20 [History] amLODIPine Besylate [Amlodipine Besylate] 10 mg PO DAILY #30 tablet 09/17/20 [Rx] traZODone HCl [Trazodone HCl] 1 tab PO BEDTIME 09/17/20 [History] Past Medical History HEENT History: Reports: Impaired Vision Other HEENT History: wears glasses Cardiovascular History: Reports: Hypertension (Is on Normodyne daily.) Respiratory History: Reports: Asthma 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 She is no longer breast-feeding. She states she has had a Depo-Provera shot. Current blood loss is a combination of bright red blood and old menses or brownish discolored discharge.) Musculoskeletal History: Reports: Other (See Below) Other Musculoskeletal History: spinal stenosis;arthritis to neck and spurs to neck;scoliosis Neurological History: Reports: Neuropathy, Peripheral Psychiatric History: Reports: Bipolar Social & Family History - Family History Family Medical History: No Pertinent Family History Cardiac: Reports: MA Neurological: Reports: CVA Psychiatric: Reports: Autism Oncologic: Reports: Breast - Tobacco Use Tobacco Use Status *Q: Current Every Day Tobacco User Years of Tobacco use: 20 Packs/Tins Daily: 0.2 - Caffeine Use Caffeine Use: Reports: None - Recreational Drug Use Recreational Drug Use: Yes Recreational Drug Type: Reports: Marijuana/Hashish Recreational Drug Use Frequency: Daily - Living Situation & Occupation Living situation: Reports: Occupation: Disabled ED ROS GENERAL - Review of Systems Review Of Systems: See Below Constitutional: Denies: Fever, Chills, Malaise, Weakness, Fatigue, Night Sweats, Diaphoresis, Decreased Appetite, Weight Loss HEENT: Reports: No Symptoms Respiratory: Reports: Wheezing (Tree of asthma.) Cardiovascular: Reports: Blood Pressure Problem (She has a history of h ypertension is and is supposed to be taking labetalol daily. Dosage unknown.) Endocrine: Reports: No Symptoms GI/Abdominal: Reports: Bloody Stool (She is unsure about blood in the stool this morning she did look after having a bowel movement.), Constipation (Tends to have a bowel movement of once every 5 to 7 days.). Denies: Black Stool, Decreased Appetite, Hematemesis, Nausea, Stool Incontinence, Vomiting : Reports: Other (Menses is now more dark brownish in color with occasional bright red blood.) Musculoskeletal: Reports: No Symptoms Skin: Reports: No Symptoms Neurological: Reports: No Symptoms Psychiatric: Reports: No Symptoms Hematologic/Lymphatic: Reports: No Symptoms ED EXAM, GI/ABD - Physical Exam Exam: See Below Exam Limited By: No Limitations General Appearance: Alert, WD/WN, No Apparent Distress, Other (Temperature is 36.2 heart rate 71 respiratory 20 with O2 sats of 100% BP 163/115 initially.) Eyes: Bilateral: Normal Appearance Throat/Mouth: Normal Inspection, Normal Lips, Normal Oropharynx Head: Atraumatic, Normocephalic Neck: Normal Inspection, Supple, Non-Tender, Full Range of Motion. No: Lymphadenopathy (L), Lymphadenopathy (R) Respiratory/Chest: No Respiratory Distress, Lungs Clear, Normal Breath Sounds Cardiovascular: Normal Peripheral Pulses, Regular Rate, Rhythm, No Gallop, No Murmur, No Rub GI/Abdominal Exam: No Organomegaly, Tender (Bowel sounds are hyperactive in all 4 quadrants. Tenderness on palpation left lower quadrant left hemiabdomen over the distribution of the large bowel and suprapubically.), Abnormal Bowel Sounds, Other (No surgical scars. Numerous striae from childbirth.). No: Guarding, Rigid, Rebound Rectal (Female) Exam: Normal Rectal Tone, Hemorrhoids (Rectal exam she has palpable hemorrhoids but 1 cm in diameter firm to palpation and mildly tender at the 7:00 and 11 o'clock position.). No: Bloody Stool Back Exam: Normal Inspection, Full Range of Motion. No: CVA Tenderness (L), CVA Tenderness (R) Extremities: Normal Inspection, Normal Range of Motion, Non-Tender, No Pedal Edema Neurological: Alert, Oriented, CN II-XII Intact, Normal Cognition, Normal Gait Psychiatric: Anxious Skin Exam: Warm, Dry (Mildly anxious.), Intact, Normal Color, No Rash Course - Vital Signs Last Recorded V/S: Last Vital Signs Temp 36.2 C 09/17/20 06:59 Pulse 71 09/17/20 06:59 Resp 16 09/17/20 09:45 BP 176/104 H 09/17/20 10:19 Pulse Ox 99 09/17/20 09:45 - Orders/Labs/Meds Labs: Laboratory Tests 09/17/20 09/17/20 09/17/20 Range/Units 07:55 07:55 07:55 WBC 5.74 (3.98-10.04) K/mm3 RBC 5.35 H (3.98-5.22) M/mm3 Hgb 15.0 (11.2-15.7) gm/dl Hct 45.1 H (34.1-44.9) % MCV 84.3 (79.4-94.8) fl MCH 28.0 (25.6-32.2) pg MCHC 33.3 (32.2-35.5) g/dl RDW Std Deviation 51.2 H (36.4-46.3) fL Plt Count 361 (182-369) K/mm3 MPV 10.1 (9.4-12.3) fl Neut % (Auto) 38.4 (34.0-71.1) % Lymph % (Auto) 46.0 (19.3-51.7) % [place] % (Auto) 7.8 (4.7-12.5) % Eos % (Auto) 7.1 H (0.7-5.8) Baso % (Auto) 0.7 (0.1-1.2) % Neut # (Auto) 2.20 (1.56-6.13) K/mm3 Lymph # (Auto) 2.64 (1.18-3.74) K/mm3 [place] # (Auto) 0.45 H (0.24-0.36) K/mm3 Eos # (Auto) 0.41 H (0.04-0.36) K/mm3 Baso # (Auto) 0.04 (0.01-0.08) K/mm3 C-Reactive Protein <0.2 (<1.0) mg/dL TSH 3rd Generation (0.358-3.74) uIU/mL HCG, Qual (NEGATIVE) Urine Color Yellow (Yellow) Urine Appearance Clear (Clear) Urine pH 7.0 (5.0-8.0) Ur Specific [place] 1.025 (1.005-1.030) Urine Protein Negative (Negative) Urine Glucose (UA) Negative (Negative) Urine Ketones Negative (Negative) Urine Occult Blood 3+ H (Negative) Urine Nitrite Negative (Negative) Urine Bilirubin Negative (Negative) Urine Urobilinogen 1.0 (0.2-1.0) Ur Leukocyte Esterase Negative (Negative) Urine RBC 0-5 (0-5) /hpf Urine WBC 0-5 (0-5) /hpf Ur Epithelial Cells 0-5 (0-5) /hpf Urine Bacteria Few (FEW) /hpf Urine Mucus Few (FEW) /hpf 09/17/20 09/17/20 Range/Units 07:55 07:56 WBC (3.98-10.04) K/mm3 RBC (3.98-5.22) M/mm3 Hgb (11.2-15.7) gm/dl Hct (34.1-44.9) % MCV (79.4-94.8) fl MCH (25.6-32.2) pg MCHC (32.2-35.5) g/dl RDW Std Deviation (36.4-46.3) fL Plt Count (182-369) K/mm3 MPV (9.4-12.3) fl Neut % (Auto) (34.0-71.1) % Lymph % (Auto) (19.3-51.7) % [place] % (Auto) (4.7-12.5) % Eos % (Auto) (0.7-5.8) Baso % (Auto) (0.1-1.2) % Neut # (Auto) (1.56-6.13) K/mm3 Lymph # (Auto) (1.18-3.74) K/mm3 [place] # (Auto) (0.24-0.36) K/mm3 Eos # (Auto) (0.04-0.36) K/mm3 Baso # (Auto) (0.01-0.08) K/mm3 C-Reactive Protein (<1.0) mg/dL TSH 3rd Generation 0.825 (0.358-3.74) uIU/mL HCG, Qual Negative (NEGATIVE) Urine Color (Yellow) Urine Appearance (Clear) Urine pH (5.0-8.0) Ur Specific [place] (1.005-1.030) Urine Protein (Negative) Urine Glucose (UA) (Negative) Urine Ketones (Negative) Urine Occult Blood (Negative) Urine Nitrite (Negative) Urine Bilirubin (Negative) Urine Urobilinogen (0.2-1.0) Ur Leukocyte Esterase (Negative) Urine RBC (0-5) /hpf Urine WBC (0-5) /hpf Ur Epithelial Cells (0-5) /hpf Urine Bacteria (FEW) /hpf Urine Mucus (FEW) /hpf Meds: Medications Discontinued Medications Generic Name Dose Route Start Last Admin Trade Name Juan PRN Reason Stop Dose Admin Amlodipine Besylate 10 mg 09/17/20 10:00 09/17/20 10:19 Norvasc PO 09/17/20 10:01 10 mg ONETIME ONE Administration Hydromorphone HCl 0.5 mg 09/17/20 07:34 09/17/20 08:03 Dilaudid IVPUSH 09/17/20 07:35 0.5 mg ONETIME ONE Administration Sodium Chloride 1,000 mls @ 150 mls/hr 09/17/20 07:45 09/17/20 08:02 Normal Saline IV 150 mls/hr ASDIRECTED RANDY Administration Ondansetron HCl 4 mg 09/17/20 07:34 09/17/20 08:02 Zofran IVPUSH 09/17/20 07:35 4 mg ONETIME ONE Administration - Radiology Interpretation Free Text/Narrative:: 40-year-old female of -Chinese descent presents to the ED for evaluation of pelvic pain. This morning it seemed to be set off by a urgency to have a bowel movement which was mildly constipated but explosive. She is not sure if she had any blood per rectum and she was in the bathroom in the dark and did not look at toilet paper to see if there was any blood on it. She reports that she is had persistent bleeding per vagina daily since childbirth 3 months ago. Bleeding was for the most part bright red in color up until the last week when it has been more brownish in color with occasional bright red blood. For the last 3 days she has had pain in the vagina and perineum and rectum that has come in the morning and is almost paralyzed her for about 1/2-hour of the day. She states she had to lie still and wait for it to slowly go away. She has not taken any medication for. This morning it seemed to be set off by having a bowel movement. Examination reveals mild suprapubic left lower quadrant abdominal tenderness but no acute abdomen. Plan; IV normal saline will be started at 150 mils per hour. We will give Dilaudid 0.5 mg IV with Zofran 4 mg IV for pain relief. She will have a KUB performed and a transvaginal ultrasound. Lab work will consist of CBC CRP and a serum TSH due to dysfunctional uterine bleeding post . - Re-Assessments/Exams Free Text/Narrative Re-Assessment/Exam: 09/17/20 09:06 KUB reveals a few nonspecific dilated loops of small bowel particular in the left upper quadrant left mid abdomen. There is minimal stool present in the cecum. No evidence of bowel obstruction at this time.Labs reveal a normal white count at 5.74 auto differential shows 38% neutrophils and 46% lymphocytes suggesting underlying viral infection. Hemoglobin is 15.0 with hematocrit of 45.1. Platelet count 361,000. C-reactive protein is less than 0.2 TSH is 0.825 beta-hCG by serum analysis was negative. Urine shows 3+ occult blood but no signs of infection. 09/17/20 09:27 Vaginal ultrasound has been completed. I do not have yet the report. She has a 2.1 cm dominant follicle within the right ovary. Minimal amount of free fluid is seen believed to be physiologic. No other ovarian cyst or solid abnormalities appreciated. Uterus measures 7.9 x 4.4 cm with a transverse width of 5.6 cm. Right ovary is 3.5 x 2.1 x 2.0 cm. Left ovary is 3.7 x 1.6 x 2.7 cm. Therefore there is no obvious source of abnormality of ovary to be causing vaginal and rectal pain. 09/17/20 09:54 exam reveals a thrombosed internal hemorrhoid at the 7:00 and 11:00 positions clinically. There was no bleeding appreciated. There are no external hemorrhoids. Rectal exam was mildly tender. No evidence of anal fissure identified. Dr. Winston wants to see the patient in consultation in the clinic before advising a treatment plan for her dysfunctional uterine bleeding. I will therefore have the patient make an appointment within the next day or [address] Funes. In the meantime her blood pressure issues will be addressed with adding amlodipine 10 mg once daily in the morning to treat her hypertension. She appreciates that she is on labetalol 100 mg twice daily usually taken morning and bedtime. Treatment of her internal hemorrhoids will be Anusol HC suppositories 1 at bedtime for the next 6 days. Departure - Departure Time of Disposition: 09:56 Disposition: Home, Self-Care 01 Condition: Fair Clinical Impression: Dysfunctional uterine bleeding, Uncontrolled hypertension, stage 1, Internal thrombosed hemorrhoids - Discharge Information *PRESCRIPTION DRUG MONITORING PROGRAM REVIEWED*: Not Applicable *COPY OF PRESCRIPTION DRUG MONITORING REPORT IN PATIENT MACO: Not Applicable Prescriptions: amLODIPine Besylate [Amlodipine Besylate] 10 mg PO DAILY #30 tablet Hydrocortisone Acetate [Anusol-Hc] 25 mg RC DAILY #6 supp.rect Instructions: Hemorrhoids, [id number], Hypertension, Adult, [id number], Abnormal Uterine Bleeding, [id number] Referrals: Ailyn Medrano MD [Primary Care Provider] - Forms: ED Department Discharge Additional Instructions: Evaluation in the emergency room today in regards to diffuse lower pelvic pain with significant discomfort felt in the rectum and vagina for the last 3 days much worse today after having a bowel movement. Second problem is persistent vaginal bleeding since childbirth the end of May 2020. This is in spite of being on Depo-Provera given around the end of June. Ultrasound of the uterus and ovaries done today reveals endometrial stripe is thickened suggesting that there is an excessive amount of estrogen still in your system which is causing the persistent vaginal bleeding. Ovaries show a 2.1 cm cyst which is benign in the right ovary. No evidence of a ruptured ovarian cyst. I have discussed this with Dr. Winston at [facility] and she wishes to see you in the clinic within the next day or 2 to discuss treatment options for persistent vaginal bleeding. All x-ray of the abdomen today reveals no significant abnormalities in particular there is no significant retained stool or constipation. Rectal exam reveals thrombosed internal hemorrhoid at the 7:00 and 11 o'clock position on examination. This is likely the cause of the vaginal and rectal discomfort. Suggest treatment with Anusol HC suppository at bedtime for the next 6 nights. If the pain returns --sitting in a hot bath often will start to give you some pain relief as well. Third problem identified in the emergency room was uncontrolled blood pressure. Blood pressure is staying any where between 160 and 175 on the top number and anywhere from 104-117 on the bottom number. Normal [place] we would like your blood pressure to be less than 140 on the top ideally around 135 and 85 or lower on the bottom number. Therefore additional medication is required in addition to your labetalol 100 mg twice daily which you should continue. Suggest amlodipine 10 mg once daily either at bedtime or in the morning to bring blood pressure under control. Further evaluation of blood pressure is required in the clinic and you may have to set up an appointment with one of the primary care providers such as Keli Sandhu or Daniela Lewis to follow your blood pressure problems. Sepsis Event Note (ED) - Evaluation Sepsis Screening Result: No Definite Risk
[2020-09-17] MEDS: Sodium Chloride 0.9% 1,000 ML IV SCH (08:02)
[2020-09-17] MEDS: Ondansetron 4 MG/2 ML SDV IVPUSH ONE (08:02)
[2020-09-17] MEDS: HYDROmorphone 0.5 MG/0.5 ML Syringe IVPUSH ONE (08:03)
--- NOTE | 2020-09-17 08:56 | CR ---
Abdomen: Supine view of the abdomen was obtained. Comparison: No previous abdominal x-rays available. Small bowel gas is noted. Very slight small bowel prominence is seen within several loops. Multiple calcifications are noted within the pelvis compatible with phleboliths. Nothing acute is otherwise seen. Impression: 1. Slight small bowel gas most likely relating to swallowed air. At this point, this does not appear to be obstructive and may represent gastroenteritis. 2. If patient remains symptomatic, follow-up plain film study is recommended. Diagnostic code #2
--- NOTE | 2020-09-17 09:27 | US ---
Pelvic ultrasound: Multiple real-time images were obtained transvaginally. Comparison: No prior pelvic ultrasound is available. Findings: Uterus is retroverted. Endometrial thickness is 9.8 mm. Minimal amount of free fluid is seen believed to be physiologic. Dominant follicle is noted within the right ovary measuring 2.1 cm. No other cyst or solid abnormality is appreciated. Measurements: Uterus: Length 7.9 cm, AP height 4.4 cm, transverse width 5.6 cm Right ovary: 3.5 x 2.1 x 2.0 cm Left ovary: 3.7 x 1.6 x 2.7 cm Impression: 1. Findings as noted above which are felt to be physiologic. 2. Nothing acute is seen on pelvic ultrasound study. Diagnostic code #1
[2020-09-17] MEDS: amLODIPine 10 MG Tab PO ONE (10:19)
== END 2020-09-17 10:24 | disposition home or self-care (01) ==
LOC: JD.ED 06:54
DX: N93.8 Other specified abnormal uterine and vaginal bleeding (principal); K64.8 Other hemorrhoids; K64.5 Perianal venous thrombosis; I10 Essential (primary) hypertension; J45.909 Unspecified asthma, uncomplicated; Z72.0 Tobacco use; Z88.5 Allergy status to narcotic agent; Z88.1 Allergy status to other antibiotic agents; Z91.011 Allergy to milk products; Z88.8 Allergy status to other drugs, medicaments and biological substances; Z91.048 Other nonmedicinal substance allergy status; Z79.899 Other long term (current) drug therapy
CPT/HCPCS: 36415; 74018; 76830; 81001; 84443; 84703; 85025; 86140; 96374; 96375; 99285; A9270; J1170; J2405; J7030; 99284

== ENCOUNTER 2020-09-22 06:35 | Emergency (ER) | payer MEDICARE, MEDICAID ==
--- NOTE | 2020-09-22 07:24 | EDM.PDOC ---
ED HPI GENERAL MEDICAL PROBLEM - General Chief Complaint: Abdominal Pain Stated Complaint: ABDOMINAL PAIN Time Seen by Provider: 09/22/20 07:24 - History of Present Illness INITIAL COMMENTS - FREE TEXT/NARRATIVE: 40-year-old female returns to emergency room with persistent right lower quadrant pelvic pain. This pain is been going on on for couple weeks now she was evaluated here approximately 5 days ago found to have hemorrhoids. Possible constipation. hCG was negative at that time and labs are otherwise unrevealing. She is having some persistent l uterine bleeding and has follow-up with Dr. Winston tomorrow for this. Patient has a hard time getting comfortable with this abdominal pain and the pain itself seems to be getting worse. Patient is using Anusol HC and this is probably helping her pain is mostly mid pelvis up into the right lower quadrant at this time. She does not get back pain she does not have burning or frequency with urination. Right Lower Abdomen Pain Score (Numeric/FACES): 10 - Related Data Allergies Allergy/AdvReac Type Severity Reaction Status Date / Time morphine Allergy Itching Verified 09/22/20 06:39 doxycycline AdvReac Nausea and Verified 09/22/20 06:39 Vomiting lactose AdvReac Stomach Verified 09/22/20 06:39 Ache promethazine AdvReac Headache Verified 09/22/20 06:39 dial soap Allergy Rash Uncoded 09/22/20 06:39 Home Meds: Home Meds Albuterol Sulfate [Albuterol Sulfate Hfa] 2 puff IH Q4H PRN 07/25/19 [History] Budesonide/Formoterol [Symbicort 160-4.5 MCG] 1 puff INH Q6H PRN 09/17/20 [History] Escitalopram [Lexapro] 1 tab PO DAILY 09/17/20 [History] Fluticasone/Vilanterol [Breo Ellipta 100-25 MCG Inhalation Kit] 1 puff INH DAILY 09/17/20 [History] Hydrocortisone Acetate [Anusol-Hc] 25 mg RC DAILY #6 supp.rect 09/17/20 [Rx] Labetalol [Normodyne] 1 tab PO DAILY 09/17/20 [History] Sennosides/Docusate Sodium [Senna-Docusate Sodium Tablet] 1 tab PO ASDIRECTED PRN 09/17/20 [History] amLODIPine Besylate [Amlodipine Besylate] 10 mg PO DAILY #30 tablet 09/17/20 [Rx] traZODone HCl [Trazodone HCl] 1 tab PO BEDTIME 09/17/20 [History] Past Medical History HEENT History: Reports: Impaired Vision Other HEENT History: wears glasses Cardiovascular History: Reports: Hypertension Respiratory History: Reports: Asthma 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: , 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 Musculoskeletal History: Reports: Other (See Below) Other Musculoskeletal History: spinal stenosis;arthritis to neck and spurs to neck;scoliosis Neurological History: Reports: Neuropathy, Peripheral Psychiatric History: Reports: Bipolar Social & Family History - Family History Family Medical History: No Pertinent Family History Cardiac: Reports: [place] Neurological: Reports: CVA Psychiatric: Reports: Autism Oncologic: Reports: Breast - Tobacco Use Years of Tobacco use: 20 Packs/Tins Daily: 0.2 - Caffeine Use Caffeine Use: Reports: None - Recreational Drug Use Recreational Drug Use: No - Living Situation & Occupation Living situation: Reports: Occupation: Disabled ED ROS GENERAL - Review of Systems Review Of Systems: See Below Constitutional: Reports: No Symptoms HEENT: Reports: No Symptoms Respiratory: Reports: No Symptoms Cardiovascular: Reports: No Symptoms GI/Abdominal: Reports: Abdominal Pain, Constipation, Nausea : Reports: No Symptoms Musculoskeletal: Reports: No Symptoms Skin: Reports: No Symptoms Neurological: Reports: No Symptoms ED EXAM, GI/ABD - Physical Exam Exam: See Below Exam Limited By: No Limitations General Appearance: Anxious, Moderate Distress (From her pain but she does appear somewhat anxious at this time) Head: Atraumatic, Normocephalic Neck: Normal Inspection, Supple, Non-Tender, Full Range of Motion Respiratory/Chest: No Respiratory Distress, Lungs Clear, Normal Breath Sounds Cardiovascular: Regular Rate, Rhythm, No Edema, No Murmur GI/Abdominal Exam: Normal Bowel Sounds, Soft, Rebound, Other (Exam was initially pretty normal however she is got significant rebound tenderness. Prior to checking this her abdomen is quite soft. Pain was mostly right lower quadrant) Back Exam: Normal Inspection. No: CVA Tenderness (L), CVA Tenderness (R) Extremities: Normal Inspection, No Pedal Edema Neurological: Alert, Oriented, Normal Cognition Course - Vital Signs Last Recorded V/S: Last Vital Signs Temp 36.6 C 09/22/20 08:06 Pulse 54 L 09/22/20 08:06 Resp 16 09/22/20 08:06 BP 169/99 H 09/22/20 08:06 Pulse Ox 100 09/22/20 08:06 - Orders/Labs/Meds Orders: Active Orders 24 hr Category Date Time Status Sodium Chloride 0.9% [Saline Flush] Med 09/22/20 07:52 Active 10 ml FLUSH ONETIME PRN Medication Orders Sodium Chloride (Saline Flush) 10 ml FLUSH ONETIME PRN PRN Reason: IV FLUSH Last Admin: 09/22/20 09:20 Dose: 10 ml Documented by: Admin: 09/22/20 08:01 Dose: 10 ml Documented by: ENRIQUE Labs: Laboratory Tests 09/22/20 09/22/20 09/22/20 Range/Units 07:40 08:00 08:00 WBC 4.77 (3.98-10.04) K/mm3 RBC 5.54 H (3.98-5.22) M/mm3 Hgb 15.6 (11.2-15.7) gm/dl Hct 46.9 H (34.1-44.9) % MCV 84.7 (79.4-94.8) fl MCH 28.2 (25.6-32.2) pg MCHC 33.3 (32.2-35.5) g/dl RDW Std Deviation 52.3 H (36.4-46.3) fL Plt Count 340 (182-369) K/mm3 MPV 10.0 (9.4-12.3) fl Neut % (Auto) 33.4 L (34.0-71.1) % Lymph % (Auto) 47.8 (19.3-51.7) % [place]ance % (Auto) 8.4 (4.7-12.5) % Eos % (Auto) 9.6 H (0.7-5.8) Baso % (Auto) 0.8 (0.1-1.2) % Neut # (Auto) 1.59 (1.56-6.13) K/mm3 Lymph # (Auto) 2.28 (1.18-3.74) K/mm3 [place] # (Auto) 0.40 H (0.24-0.36) K/mm3 Eos # (Auto) 0.46 H (0.04-0.36) K/mm3 Baso # (Auto) 0.04 (0.01-0.08) K/mm3 Sodium 143 (136-145) mEq/L Potassium 3.6 (3.5-5.1) mEq/L Chloride 104 (98-107) mEq/L Carbon Dioxide 23 (21-32) mEq/L Anion Gap 19.6 H (5-15) BUN 7 (7-18) mg/dL Creatinine 0.9 (0.55-1.02) mg/dL Est Cr Clr Drug Dosing 79.29 mL/min Estimated GFR (MDRD) > 60 (>60) mL/min BUN/Creatinine Ratio 7.8 L (14-18) Glucose 82 (74-106) mg/dL Calcium 9.1 (8.5-10.1) mg/dL Total Bilirubin 0.9 (0.2-1.0) mg/dL AST 14 L (15-37) U/L ALT 22 (14-59) U/L Alkaline Phosphatase 76 (46-116) U/L Total Protein 8.4 H (6.4-8.2) g/dl Albumin 4.5 (3.4-5.0) g/dl Globulin 3.9 gm/dL Albumin/Globulin Ratio 1.2 (1-2) HCG, Qual (NEGATIVE) Urine Color Yellow (Yellow) Urine Appearance Clear (Clear) Urine pH 7.0 (5.0-8.0) Ur Specific [place] 1.020 (1.005-1.030) Urine Protein Negative (Negative) Urine Glucose (UA) Negative (Negative) Urine Ketones Negative (Negative) Urine Occult Blood 3+ H (Negative) Urine Nitrite Negative (Negative) Urine Bilirubin Negative (Negative) Urine Urobilinogen 0.2 (0.2-1.0) Ur Leukocyte Esterase Negative (Negative) Urine RBC 0-5 (0-5) /hpf Urine WBC Not seen (0-5) /hpf Ur Epithelial Cells 0-5 (0-5) /hpf Urine Bacteria Few (FEW) /hpf Urine Mucus Few (FEW) /hpf 09/22/20 Range/Units 08:00 WBC (3.98-10.04) K/mm3 RBC (3.98-5.22) M/mm3 Hgb (11.2-15.7) gm/dl Hct (34.1-44.9) % MCV (79.4-94.8) fl MCH (25.6-32.2) pg MCHC (32.2-35.5) g/dl RDW Std Deviation (36.4-46.3) fL Plt Count (182-369) K/mm3 MPV (9.4-12.3) fl Neut % (Auto) (34.0-71.1) % Lymph % (Auto) (19.3-51.7) % [place]ance % (Auto) (4.7-12.5) % Eos % (Auto) (0.7-5.8) Baso % (Auto) (0.1-1.2) % Neut # (Auto) (1.56-6.13) K/mm3 Lymph # (Auto) (1.18-3.74) K/mm3 [place] # (Auto) (0.24-0.36) K/mm3 Eos # (Auto) (0.04-0.36) K/mm3 Baso # (Auto) (0.01-0.08) K/mm3 Sodium (136-145) mEq/L Potassium (3.5-5.1) mEq/L Chloride (98-107) mEq/L Carbon Dioxide (21-32) mEq/L Anion Gap (5-15) BUN (7-18) mg/dL Creatinine (0.55-1.02) mg/dL Est Cr Clr Drug Dosing mL/min Estimated GFR (MDRD) (>60) mL/min BUN/Creatinine Ratio (14-18) Glucose (74-106) mg/dL Calcium (8.5-10.1) mg/dL Total Bilirubin (0.2-1.0) mg/dL AST (15-37) U/L ALT (14-59) U/L Alkaline Phosphatase (46-116) U/L Total Protein (6.4-8.2) g/dl Albumin (3.4-5.0) g/dl Globulin gm/dL Albumin/Globulin Ratio (1-2) HCG, Qual Negative (NEGATIVE) Urine Color (Yellow) Urine Appearance (Clear) Urine pH (5.0-8.0) Ur Specific [place] (1.005-1.030) Urine Protein (Negative) Urine Glucose (UA) (Negative) Urine Ketones (Negative) Urine Occult Blood (Negative) Urine Nitrite (Negative) Urine Bilirubin (Negative) Urine Urobilinogen (0.2-1.0) Ur Leukocyte Esterase (Negative) Urine RBC (0-5) /hpf Urine WBC (0-5) /hpf Ur Epithelial Cells (0-5) /hpf Urine Bacteria (FEW) /hpf Urine Mucus (FEW) /hpf Meds: Medications Generic Name Dose Route Start Last Admin Trade Name Freq PRN Reason Stop Dose Admin Sodium Chloride 10 ml 09/22/20 07:52 09/22/20 09:20 Saline Flush FLUSH 10 ml ONETIME PRN Administration IV FLUSH Discontinued Medications Generic Name Dose Route Start Last Admin Trade Name Freq PRN Reason Stop Dose Admin Diatrizoate Meglum/Diatrizoate Sod 120 ml 09/22/20 07:52 09/22/20 09:20 Gastrografin 37% PO 09/22/20 07:53 45 ml ONETIME ONE Administration Hydromorphone HCl 0.5 mg 09/22/20 07:42 09/22/20 08:03 Dilaudid IVPUSH 09/22/20 07:43 0.5 mg ONETIME ONE Administration Lactated Ringer's 1,000 mls @ 999 mls/hr 09/22/20 07:42 09/22/20 08:05 Ringers, Lactated IV 09/22/20 08:42 999 mls/hr .BOLUS ONE Administration Iopamidol 100 ml 09/22/20 07:52 09/22/20 09:20 Isovue-300 (61%) IVPUSH 09/22/20 07:53 100 ml ONETIME ONE Administration Ondansetron HCl 4 mg 09/22/20 07:42 09/22/20 08:01 Zofran IVPUSH 09/22/20 07:43 4 mg ONETIME ONE Administration - Re-Assessments/Exams Free Text/Narrative Re-Assessment/Exam: 09/22/20 07:48 Labs ordered we will start an IV give fluids and some Dilaudid for discomfort. With rebound tenderness and the uncertainty of the diagnosis I will go ahead and check a abdominal pelvic CT with IV and oral contrast 09/22/20 08:[address] at this time the patient has drank oral contrast and she feels much better she still getting IV fluids. Received Zofran and Dilaudid and this is probably what helped. 09/22/20 10:16 Laboratory evaluation is unrevealing CT does not show us anything. The patient continues to do well. She has follow-up with Dr. Winston tomorrow. For her possible constipation we will have her start MiraLAX daily and see if this helps. Departure - Departure Time of Disposition: 10:17 Disposition: Home, Self-Care 01 Clinical Impression: Abdominal pain of unknown etiology - Discharge Information Referrals: Ailyn Medrano MD [Primary Care Provider] - Forms: ED Department Discharge Additional Instructions: Return to the emergency room with any questions problems or worsening symptoms. Follow-up with Dr. Winston tomorrow as scheduled. Follow-up with your regular physician at the end of this week for recheck. Start MiraLAX 1 capful daily and see if this helps the out it may take several days before you notice anything. Push lots of fluids. Noncaffeinated and nonalcoholic beverages. Sepsis Event Note (ED) - Evaluation Sepsis Screening Result: No Definite Risk - Focused Exam Vital Signs: Vital Signs Temp Pulse Resp BP Pulse Ox 09/22/20 08:06 36.6 C 54 L 16 169/99 H 100 09/22/20 06:39 36.4 C 68 20 157/115 H 100 - My Orders Last 24 Hours: My Active Orders 09/22/20 07:52 Sodium Chloride 0.9% [Saline Flush] 10 ml FLUSH ONETIME PRN - Assessment/Plan Last 24 Hours: My Active Orders 09/22/20 07:52 Sodium Chloride 0.9% [Saline Flush] 10 ml FLUSH ONETIME PRN
[2020-09-22] MEDS ORDERED: Ondansetron 4 MG/2 ML SDV IVPUSH ONE (07:42)
[2020-09-22] MEDS ORDERED: HYDROmorphone 0.5 MG/0.5 ML Syringe IVPUSH ONE (07:42)
[2020-09-22] MEDS ORDERED: Lactated Ringers 1,000 ML IV ONE (07:42)
[2020-09-22] MEDS ORDERED: Iopamidol 612 MG/ML 100 ML Bottle IVPUSH ONE (07:52)
[2020-09-22] MEDS ORDERED: Diatrizoate Meglumine/Diatrizoate Sodium 37% 120 ML Bottle PO ONE (07:52)
[2020-09-22] MEDS: Sodium Chloride 0.9% 10 ML Syringe FLUSH PRN ×2 (08:01→09:20)
--- NOTE | 2020-09-22 10:03 | CT ---
CT abdomen and pelvis Technique: Multiple axial sections were obtained from above the dome of the diaphragm inferiorly through the pubic symphysis. Delayed images were also obtained through the abdomen and pelvis. Reconstructed coronal and sagittal images were obtained. Comparison: No prior CT imaging is available. Findings: Visualized lung bases show nothing acute. Liver contains no focal parenchymal abnormality. Spleen appears within normal limits. Adrenal glands show no nodules. Gallbladder contains no calcified gallstones. Pancreas shows no discrete abnormality. Kidneys show symmetric contrast enhancement with no hydronephrosis or mass being seen. Delayed images show contrast within the ureters and within the bladder. Aorta shows no aneurysm. No retroperitoneal adenopathy or mesenteric abnormalities are appreciated. There is minimal amount of fluid within the pelvis which is most likely physiologic. Appendix is seen which is normal in size. No inflammatory change is appreciated. No bowel dilatation is seen. Bone window settings were reviewed which show no acute osseous finding. Impression: 1. Nothing acute is seen on CT study of the abdomen and pelvis. Appendix appears normal. Diagnostic code #1
== END 2020-09-22 10:35 | disposition home or self-care (01) ==
LOC: JD.ED 06:35
DX: R10.31 Right lower quadrant pain (principal); R10.2 Pelvic and perineal pain; I10 Essential (primary) hypertension; J45.909 Unspecified asthma, uncomplicated; Z72.0 Tobacco use; Z88.5 Allergy status to narcotic agent; Z88.1 Allergy status to other antibiotic agents; Z91.011 Allergy to milk products; Z88.8 Allergy status to other drugs, medicaments and biological substances; Z91.048 Other nonmedicinal substance allergy status; Z79.899 Other long term (current) drug therapy
CPT/HCPCS: 36415; 74177; 80053; 81001; 84703; 85025; 96374; 96375; 99284; J1170; J2405; J7120; Q9963; Q9967

== ENCOUNTER 2021-07-27 11:03 | Inpatient (IN) | payer MEDICARE, MEDICAID, OTHER ==
[2021-07-27] MEDS ORDERED: Ondansetron 4 MG/2 ML SDV IVPUSH PRN (12:10)
[2021-07-27] MEDS ORDERED: Sodium Chloride 0.9% 10 ML Syringe FLUSH PRN (12:10)
[2021-07-27] MEDS ORDERED: Oxytocin/Lactated Ringers 10 UNIT/1,000 ML BAG IV SCH ×2 (12:15)
[2021-07-27] MEDS ORDERED: Lactated Ringers 1,000 ML IV SCH (12:15)
[2021-07-27] MEDS ORDERED: Ampicillin 2 GM in Sodium Chloride 0.9% 100 ML IV ONE (12:30)
[2021-07-27] MEDS: Ampicillin 1 GM in Sodium Chloride 0.9% 100 ML IV SCH ×2 (16:37→20:25)
[2021-07-27] MEDS: Nalbuphine 10 MG/1 ML Vial IVPUSH PRN ×2 (17:44→20:22)
--- NOTE | 2021-07-27 19:02 | PCM.LDHP ---
L&D History of Present Illness - General Date of Service: 07/27/21 Admit Problem/Dx: Patient Status Order with Admit Dx/Problem 07/27/21 12:10 Patient Status [ADT] Routine Admission Diagnosis/Problem Admission Diagnosis/Problem Source of Information: Patient History Limitations: Reports: No Limitations - History of Present Illness Introduction:: Patient is a 41 y/o at 37 3/7 wks who presented to L&D after findings of two mild range BP's in clinic. Doing well currently Pain Score: 10 - Related Data Allergies/Adverse Reactions: Allergies Allergy/AdvReac Type Severity Reaction Status Date / Time morphine Allergy Itching Verified 07/20/21 19:12 doxycycline AdvReac Nausea and Verified 07/20/21 19:12 Vomiting lactose AdvReac Stomach Verified 07/20/21 19:12 Ache promethazine AdvReac Headache Verified 07/20/21 19:12 dial soap Allergy Rash Uncoded 09/22/20 06:39 Home Medications: Home Meds Albuterol Sulfate [Albuterol Sulfate Hfa] 2 puff IH Q4H PRN 07/25/19 [History] Aspirin [Shiraz Chewable Aspirin] 1 tab PO DAILY 06/18/21 [History] Pnv No.95/Ferrous Fum/Folic AC [ Tablet] 1 tab PO DAILY 06/18/21 [History] Past Medical History HEENT History: Reports: Impaired Vision Other HEENT History: wears glasses Cardiovascular History: Reports: Hypertension Respiratory History: Reports: Asthma Gastrointestinal History: Reports: GERD 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: , 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 Para: 6 Musculoskeletal History: Reports: Osteoarthritis, Other (See Below) Other Musculoskeletal History: spinal stenosis;arthritis to neck and spurs to neck;scoliosis Neurological History: Reports: Neuropathy, Peripheral Psychiatric History: Reports: Anxiety, Bipolar, Depression, PTSD, Other (See Below) Hematologic History: Reports: Anemia - Past Surgical History Musculoskeletal Surgical History: Reports: Shoulder Surgery Other Musculoskeletal Surgeries/Procedures:: Shoulder surg in 2006 Social & Family History - Family History Family Medical History: No Pertinent Family History Cardiac: Reports: [place] Neurological: Reports: CVA Psychiatric: Reports: Autism Oncologic: Reports: Breast - Tobacco Use Tobacco Use Status *Q: Current Every Day Tobacco User Years of Tobacco use: 31 Packs/Tins Daily: 0.2 - Caffeine Use Caffeine Use: Reports: None - Alcohol Use Alcohol Use History: No - Recreational Drug Use Recreational Drug Use: Yes Drug Use in Last 12 Months: Yes Recreational Drug Type: Reports: Cocaine (crack cocaine, last use 2018), Marijuana/Hashish, Methamphetamine (last use 2018) - Living Situation & Occupation Living situation: Reports: Occupation: Disabled H&P Review of Systems - Review of Systems: Review Of Systems: See Below General: Reports: No Symptoms Pulmonary: Reports: No Symptoms Cardiovascular: Reports: No Symptoms Gastrointestinal: Reports: No Symptoms Genitourinary: Reports: No Symptoms Musculoskeletal: Reports: No Symptoms Psychiatric: Reports: No Symptoms Neurological: Reports: No Symptoms L&D Exam - Exam Exam: See Below - Vital Signs Vital Signs: Last Vital Signs Temp 37.2 C 07/27/21 11:36 Pulse 75 07/27/21 11:36 Resp 18 07/27/21 11:36 BP 112/84 07/27/21 11:36 Pulse Ox 99 07/27/21 11:36 Weight: 63.957 kg - OB Specific Contraction Intensity: Irritability Movement: Active Heart Tones: Present Heart Tones per Min: 130 Heart Rate (FHR) Variability: Moderate (6-25 bpm) Presentation: Vertex - Crocker Score Crocker Score Cervix Position: Posterior Crocker Score Consistency: Medium Crocker Score Effacement: 51-70% Crocker Score Dilation: 3-4 cm Crocker Score Infant's Station: -2 Crocker Score Total: 6 - Exam General: Alert, Oriented, Cooperative Lungs: Clear to Auscultation, Normal Respiratory Effort Cardiovascular: Regular Rate, Regular Rhythm GI/Abdominal Exam: Soft, Non-Tender Genitourinary: Normal external exam Extremities: Normal Inspection Skin: Warm, Dry, Intact - Patient Data Lab Results Last 24 hrs: Laboratory Results - last 24 hr 07/27/21 07/27/21 07/27/21 Range/Units 11:40 12:23 12:31 WBC (3.98-10.04) K/mm3 RBC (3.98-5.22) M/mm3 Hgb (11.2-15.7) gm/dl Hct (34.1-44.9) % MCV (79.4-94.8) fl MCH (25.6-32.2) pg MCHC (32.2-35.5) g/dl RDW Std Deviation (36.4-46.3) fL Plt Count (182-369) K/mm3 MPV (9.4-12.3) fl Neut % (Auto) (34.0-71.1) % Lymph % (Auto) (19.3-51.7) % [place] % (Auto) (4.7-12.5) % Eos % (Auto) (0.7-5.8) Baso % (Auto) (0.1-1.2) % Neut # (Auto) (1.56-6.13) K/mm3 Lymph # (Auto) (1.18-3.74) K/mm3 [place] # (Auto) (0.24-0.36) K/mm3 Eos # (Auto) (0.04-0.36) K/mm3 Baso # (Auto) (0.01-0.08) K/mm3 BUN (7-18) mg/dL Creatinine (0.55-1.02) mg/dL Est Cr Clr Drug Dosing mL/min Estimated GFR (MDRD) (>60) mL/min Uric Acid (2.6-6.0) mg/dL AST (15-37) U/L ALT (14-59) U/L Lactate Dehydrogenase (81-234) U/L Ur Random Creatinine 64.7 (30.0-125.0) mg/dL U Random Total Protein 9.4 (0.0-11.8) mg/dL Protein/Creatinin Ratio 145.3 (0-149) mg/g RPR Non-reactive (NONREACTIVE) SARS-CoV-2 RNA (BRE) Negative (NEGATIVE) Blood Type Gel Antibody Screen 07/27/21 07/27/21 07/27/21 Range/Units 12:31 12:31 12:31 WBC 5.31 (3.98-10.04) K/mm3 RBC 4.75 (3.98-5.22) M/mm3 Hgb 13.9 D (11.2-15.7) gm/dl Hct 41.2 (34.1-44.9) % MCV 86.7 (79.4-94.8) fl MCH 29.3 (25.6-32.2) pg MCHC 33.7 (32.2-35.5) g/dl RDW Std Deviation 47.0 H (36.4-46.3) fL Plt Count 277 (182-369) K/mm3 MPV 10.7 (9.4-12.3) fl Neut % (Auto) 55.4 (34.0-71.1) % Lymph % (Auto) 33.1 (19.3-51.7) % [place] % (Auto) 9.6 (4.7-12.5) % Eos % (Auto) 1.1 (0.7-5.8) Baso % (Auto) 0.4 (0.1-1.2) % Neut # (Auto) 2.94 (1.56-6.13) K/mm3 Lymph # (Auto) 1.76 (1.18-3.74) K/mm3 [place] # (Auto) 0.51 H (0.24-0.36) K/mm3 Eos # (Auto) 0.06 (0.04-0.36) K/mm3 Baso # (Auto) 0.02 (0.01-0.08) K/mm3 BUN 8 (7-18) mg/dL Creatinine 0.6 (0.55-1.02) mg/dL Est Cr Clr Drug Dosing 115.51 mL/min Estimated GFR (MDRD) > 60 (>60) mL/min Uric Acid 3.7 (2.6-6.0) mg/dL AST 23 (15-37) U/L ALT 35 (14-59) U/L Lactate Dehydrogenase 204 (81-234) U/L Ur Random Creatinine (30.0-125.0) mg/dL U Random Total Protein (0.0-11.8) mg/dL Protein/Creatinin Ratio (0-149) mg/g RPR (NONREACTIVE) SARS-CoV-2 RNA (BRE) (NEGATIVE) Blood Type O POSITIVE Gel Antibody Screen Negative Result Diagrams: 07/27/21 12:31 07/27/21 12:31 - Problem List (1) 37 weeks gestation of SNOMED Code(s): 10476895 ICD Code: Z3A.37 - 37 WEEKS GESTATION OF Status: Acute Current Visit: Yes (2) Elevated blood pressure reading SNOMED Code(s): 05463720 ICD Code: R03.0 - ELEVATED BLOOD-PRESSURE READING, W/O DIAGNOSIS OF HTN Status: Acute Current Visit: Yes (3) GBS (group B Streptococcus carrier), +RV culture, currently SNOMED Code(s): 0993453324976, 352113842, 8600163508849 ICD Code: O99.820 - STREPTOCOCCUS B CARRIER STATE COMPLICATING Status: Acute Current Visit: Yes (4) History of intravenous drug use in remission SNOMED Code(s): 83116539711564764 ICD Code: Z87.898 - PERSONAL HISTORY OF OTHER SPECIFIED CONDITIONS Status: Acute Current Visit: Yes Problem List Initiated/Reviewed/Updated: Yes Orders Last 24hrs: Active Orders 24 hr Category Date Time Status Patient Status [ADT] Routine ADT 07/27/21 12:10 Active Activity as Tolerated [RC] PFP Care 07/27/21 12:10 Active Communication Order [RC] ASDIRECTED Care 07/27/21 12:10 Active Heart Tones [RC] ASDIRECTED Care 07/27/21 12:11 Active Non Stress Test [RC] PER UNIT ROUTINE Care 07/27/21 12:10 Active Notify Provider [RC] PFP Care 07/27/21 12:10 Active Notify Provider [RC] PRN Care 07/27/21 12:10 Active Peripheral IV Care [RC] . DIRECTED Care 07/27/21 12:11 Active Vital Signs [RC] PER UNIT ROUTINE Care 07/27/21 12:10 Active Regular Diet [DIET] Diet 07/27/21 Lunch Active Ampicillin 1 gm Med 07/27/21 16:30 Active Sodium Chloride 0.9% [Normal Saline AdvBag] 100 ml IV Q4H Lactated Ringers [Ringers, Lactated] 1,000 ml Med 07/27/21 12:15 Active IV ASDIRECTED Nalbuphine [Nubain] Med 07/27/21 14:54 Active 10 mg IVPUSH Q2H PRN Ondansetron [Zofran] Med 07/27/21 12:10 Active 4 mg IVPUSH Q4H PRN Oxytocin/Lactated Ringers [Pitocin in LR 10 Units/1,000 Med 07/27/21 12:15 Active ML] 10 unit in 1,000 ml IV .CONTINUOUS Oxytocin/Lactated Ringers [Pitocin in LR 10 Units/1,000 Med 07/27/21 12:15 Active ML] 10 unit in 1,000 ml IV TITRATE Sodium Chloride 0.9% [Saline Flush] Med 07/27/21 12:10 Active 10 ml FLUSH ASDIRECTED PRN Electronic Heart Tones Ext w TOCO [WOMSER] Oth 07/27/21 12:10 Ordered Routine Electronic Heart Tones Internal [WOMSER] Per Unit Oth 07/27/21 12:10 Ordered Routine PIH Panel [OM.PC] Stat Oth 07/27/21 12:10 Ordered Peripheral IV Insertion Adult [OM.PC] Routine Oth 07/27/21 12:10 Ordered Resuscitation Status Routine Resus Stat 07/27/21 12:10 Ordered Medication Orders Ampicillin Sodium 1 gm/ Sodium (Chloride) 100 mls @ 200 mls/hr IV Q4H RANDY Last Admin: 07/27/21 16:37 Dose: 200 mls/hr Documented by: DWAYNE Oxytocin/Lactated Ringer's (Pitocin In Lr 10 Units/1,000 Ml) 10 unit in 1,000 mls @ 12 mls/hr IV TITRATE RANDY; Protocol Last Titration: 07/27/21 18:50 Dose: 6 munits/min, 36 mls/hr Documented by: Titration: 07/27/21 16:30 Dose: 4 munits/min, 24 mls/hr Documented by: Admin: 07/27/21 15:31 Dose: 2 munits/min, 12 mls/hr Documented by: DWAYNE Oxytocin/Lactated Ringer's (Pitocin In Lr 10 Units/1,000 Ml) 10 unit in 1,000 mls @ 500 mls/hr IV .CONTINUOUS RANDY Lactated Ringer's (Ringers, Lactated) 1,000 mls @ 100 mls/hr IV ASDIRECTED RANDY Last Admin: 07/27/21 12:45 Dose: 100 mls/hr Documented by: DWAYNE Nalbuphine HCl (Nalbuphine 10 Mg/1 Ml Vial) 10 mg IVPUSH Q2H PRN PRN Reason: Pain Last Admin: 07/27/21 17:44 Dose: 10 mg Documented by: DWAYNE Ondansetron HCl (Ondansetron 4 Mg/2 Ml Sdv) 4 mg IVPUSH Q4H PRN PRN Reason: Nausea/Vomiting Sodium Chloride (Sodium Chloride 0.9% 10 Ml Syringe) 10 ml FLUSH ASDIRECTED PRN PRN Reason: Keep Vein Open Assessment/Plan Comment:: * Patient with 2 mild range BP's in clinic. On L&d BP's have been more normal, but had a variable into the 50's lasting about 2 minutes on admission. Will keep for augmentation given combination of findings. * Labs including preeclamptic ordered * GBS positive, start Ampicillin * Pitocin, AROM after 2nd dose antibiotics * Pain management per patient preference * Anticipate * Hx of THC in , Peds to be made aware
--- NOTE | 2021-07-27 19:10 | PCM.PNLD ---
Labor Progress Note - VS & Meds Vital Signs: Last Vital Signs Temp 37.2 C 07/27/21 11:36 Pulse 75 07/27/21 11:36 Resp 18 07/27/21 11:36 BP 112/84 07/27/21 11:36 Pulse Ox 99 07/27/21 11:36 Active Medications: Current Medications Ampicillin Sodium 1 gm/ Sodium (Chloride) 100 mls @ 200 mls/hr IV Q4H RANDY Last Admin: 07/27/21 16:37 Dose: 200 mls/hr Documented by: Oxytocin/Lactated Ringer's (Pitocin In Lr 10 Units/1,000 Ml) 10 unit in 1,000 mls @ 12 mls/hr IV TITRATE RANDY; Protocol Last Titration: 07/27/21 18:50 Dose: 6 munits/min, 36 mls/hr Documented by: Oxytocin/Lactated Ringer's (Pitocin In Lr 10 Units/1,000 Ml) 10 unit in 1,000 mls @ 500 mls/hr IV .CONTINUOUS RANDY Lactated Ringer's (Ringers, Lactated) 1,000 mls @ 100 mls/hr IV ASDIRECTED RANDY Last Admin: 07/27/21 12:45 Dose: 100 mls/hr Documented by: Nalbuphine HCl (Nalbuphine 10 Mg/1 Ml Vial) 10 mg IVPUSH Q2H PRN PRN Reason: Pain Last Admin: 07/27/21 17:44 Dose: 10 mg Documented by: Ondansetron HCl (Ondansetron 4 Mg/2 Ml Sdv) 4 mg IVPUSH Q4H PRN PRN Reason: Nausea/Vomiting Sodium Chloride (Sodium Chloride 0.9% 10 Ml Syringe) 10 ml FLUSH ASDIRECTED PRN PRN Reason: Keep Vein Open Discontinued Medications Ampicillin Sodium 2 gm/ Sodium (Chloride) 100 mls @ 200 mls/hr IV ONETIME ONE Stop: 07/27/21 12:59 Last Admin: 07/27/21 12:45 Dose: 200 mls/hr Documented by: - Uterine Contractions Uterine Monitoring Mode: External [place] Contraction Intensity: Mild to Moderate Uterine Resting Tone: Soft - Monitoring Monitor Mode: External Ultrasound Heart Rate (FHR) Baseline: 130 Heart Rate (FHR) Variability: Moderate (6-25 bpm) Accelerations: Present, 15x15 Decelerations: None Strip Review: Category I - Vaginal Exam Dilation (cm): 3 Effacement (Percent): 80 Station: -2 Cervical Position: Posterior - Labor Progress (Free Text) Labor Progress: Doing well. No further decelerations. AROM performed. Continue present management
--- NOTE | 2021-07-27 21:59 | PCM.DEL ---
L & D Note - General Info Date of Service: 07/27/21 - Delivery Note Labor: Induced by ARM, Induced by Oxytocin Delivery Outcome: Livebirth Infant Delivery Method: Spontaneous Vaginal Delivery-Single Infant Delivery Mode: Spontaneous Presentation: Right Occiput Anterior (CHRIS) Nuchal Cord: None Anesthesia Type: None Amniotic Fluid Description: Clear Episiotomy Type: None Laceration: None Placenta: Intact, Spontaneous Cord: 3 Vessels Estimated Blood Loss: 100 Resuscitation Needed: Yes : Bulb Syringe, Stimulated, Warmed, [place] Used, Warmer Used Delivery Comments (Free Text/Narrative):: Patient found to be complete and began pushing. With maternal pushing effort head delivered from CHRIS presentation. No nuchal cord present. With gentle downward traction shoulders and body delivered. placed on maternal abdomen. Cord clamped and cut. Cord blood obtained. Placenta allowed time to separate and expelled intact. Inspection of perineum with no lacerations - General Info Date of Service: 07/27/21 - Patient Data Vitals - Most Recent: Last Vital Signs Temp 37.2 C 07/27/21 11:36 Pulse 75 07/27/21 11:36 Resp 18 07/27/21 11:36 BP 112/84 07/27/21 11:36 Pulse Ox 99 07/27/21 11:36 Weight - Most Recent: 63.957 kg I&O - Last 24 Hours: Intake & Output 07/27/21 07/27/21 07/27/21 06:59 14:59 22:59 Intake Total 240 Balance 240 - Problem List & Annotations (1) 37 weeks gestation of SNOMED Code(s): 07364395 Code(s): Z3A.37 - 37 WEEKS GESTATION OF Status: Acute Current Visit: Yes (2) Elevated blood pressure reading SNOMED Code(s): 35910548 Code(s): R03.0 - ELEVATED BLOOD-PRESSURE READING, W/O DIAGNOSIS OF HTN Status: Acute Current Visit: Yes (3) GBS (group B Streptococcus carrier), +RV culture, currently SNOMED Code(s): 3924316483070, 101552191, 7922514026584 Code(s): O99.820 - STREPTOCOCCUS B CARRIER STATE COMPLICATING Status: Acute Current Visit: Yes (4) History of intravenous drug use in remission SNOMED Code(s): 38300349658338988 Code(s): Z87.898 - PERSONAL HISTORY OF OTHER SPECIFIED CONDITIONS Status: Acute Current Visit: Yes (5) Vaginal delivery SNOMED Code(s): 194463108 Code(s): O80 - ENCOUNTER FOR FULL-TERM UNCOMPLICATED DELIVERY Status: Acute Current Visit: No - Problem List Review Problem List Initiated/Reviewed/Updated: Yes - My Orders Last 24 Hours: My Active Orders 07/27/21 Lunch Regular Diet [DIET] 07/27/21 12:10 Patient Status [ADT] Routine Activity as Tolerated [RC] PFP Communication Order [RC] ASDIRECTED Non Stress Test [RC] PER UNIT ROUTINE Notify Provider [RC] PFP Notify Provider [RC] PRN Vital Signs [RC] PER UNIT ROUTINE Ondansetron [Zofran] 4 mg IVPUSH Q4H PRN Sodium Chloride 0.9% [Saline Flush] 10 ml FLUSH ASDIRECTED PRN Electronic Heart Tones Ext w TOCO [WOMSER] Routine Electronic Heart Tones Internal [WOMSER] Per Unit Routine PIH Panel [OM.PC] Stat Peripheral IV Insertion Adult [OM.PC] Routine Resuscitation Status Routine 07/27/21 12:11 Heart Tones [RC] ASDIRECTED Peripheral IV Care [RC] . DIRECTED 07/27/21 12:15 Lactated Ringers [Ringers, Lactated] 1,000 ml IV ASDIRECTED Oxytocin/Lactated Ringers [Pitocin in LR 10 Units/1,000 ML] 10 unit in 1,000 ml IV .CONTINUOUS Oxytocin/Lactated Ringers [Pitocin in LR 10 Units/1,000 ML] 10 unit in 1,000 ml IV TITRATE 07/27/21 14:54 Nalbuphine [Nubain] 10 mg IVPUSH Q2H PRN 07/27/21 16:30 Ampicillin 1 gm Sodium Chloride 0.9% [Normal Saline AdvBag] 100 ml IV Q4H - Assessment Assessment:: PPD#0 - Plan Plan:: * Routine cares * Bottle feeding * Discharge home in 2 days
[2021-07-27] MEDS ORDERED: Witch Hazel Medicated Pads 40/Jar TOP PRN (22:16)
[2021-07-27] MEDS ORDERED: Acetaminophen/HYDROcodone 325-5 MG Tab PO PRN (22:16)
[2021-07-27] MEDS ORDERED: Benzocaine/Menthol 20%-0.5% Spray 78 GM Cannister TOP PRN (22:16)
[2021-07-27] MEDS: Ibuprofen 600 MG Tab PO PRN (23:30)
[2021-07-28] MEDS: Acetaminophen 325 MG Tab PO PRN ×2 (04:26→12:01)
[2021-07-28] MEDS: Ibuprofen 600 MG Tab PO PRN ×2 (08:38→19:27)
--- NOTE | 2021-07-28 11:23 | PCM.PNPP ---
- General Info Date of Service: 07/28/21 Functional Status: Reports: Pain Controlled, Tolerating Diet, Ambulating, Urinating - Review of Systems General: Reports: No Symptoms Pulmonary: Reports: No Symptoms Cardiovascular: Reports: No Symptoms Gastrointestinal: Reports: No Symptoms Genitourinary: Reports: No Symptoms Musculoskeletal: Reports: No Symptoms Neurological: Reports: No Symptoms - General Info Date of Service: 07/28/21 - Patient Data Vital Signs - Most Recent: Last Vital Signs Temp 36.4 C 07/28/21 02:00 Pulse 64 07/28/21 02:00 Resp 14 07/28/21 02:00 BP 104/67 07/28/21 02:00 Pulse Ox 100 07/28/21 02:00 Weight - Most Recent: 63.957 kg I&O - Last 24 Hours: Intake & Output 07/27/21 07/28/21 07/28/21 22:59 06:59 14:59 Intake Total 240 240 Balance 240 240 Lab Results - Last 24 Hours: Laboratory Results - last 24 hr 07/27/21 07/27/21 07/27/21 Range/Units 11:40 12:23 12:31 WBC (3.98-10.04) K/mm3 RBC (3.98-5.22) M/mm3 Hgb (11.2-15.7) gm/dl Hct (34.1-44.9) % MCV (79.4-94.8) fl MCH (25.6-32.2) pg MCHC (32.2-35.5) g/dl RDW Std Deviation (36.4-46.3) fL Plt Count (182-369) K/mm3 MPV (9.4-12.3) fl Neut % (Auto) (34.0-71.1) % Lymph % (Auto) (19.3-51.7) % [place] % (Auto) (4.7-12.5) % Eos % (Auto) (0.7-5.8) Baso % (Auto) (0.1-1.2) % Neut # (Auto) (1.56-6.13) K/mm3 Lymph # (Auto) (1.18-3.74) K/mm3 [place] # (Auto) (0.24-0.36) K/mm3 Eos # (Auto) (0.04-0.36) K/mm3 Baso # (Auto) (0.01-0.08) K/mm3 BUN (7-18) mg/dL Creatinine (0.55-1.02) mg/dL Est Cr Clr Drug Dosing mL/min Estimated GFR (MDRD) (>60) mL/min Uric Acid (2.6-6.0) mg/dL AST (15-37) U/L ALT (14-59) U/L Lactate Dehydrogenase (81-234) U/L Ur Random Creatinine 64.7 (30.0-125.0) mg/dL U Random Total Protein 9.4 (0.0-11.8) mg/dL Protein/Creatinin Ratio 145.3 (0-149) mg/g RPR Non-reactive (NONREACTIVE) SARS-CoV-2 RNA (BRE) Negative (NEGATIVE) Blood Type Gel Antibody Screen 07/27/21 07/27/21 07/27/21 Range/Units 12:31 12:31 12:31 WBC 5.31 (3.98-10.04) K/mm3 RBC 4.75 (3.98-5.22) M/mm3 Hgb 13.9 D (11.2-15.7) gm/dl Hct 41.2 (34.1-44.9) % MCV 86.7 (79.4-94.8) fl MCH 29.3 (25.6-32.2) pg MCHC 33.7 (32.2-35.5) g/dl RDW Std Deviation 47.0 H (36.4-46.3) fL Plt Count 277 (182-369) K/mm3 MPV 10.7 (9.4-12.3) fl Neut % (Auto) 55.4 (34.0-71.1) % Lymph % (Auto) 33.1 (19.3-51.7) % [place] % (Auto) 9.6 (4.7-12.5) % Eos % (Auto) 1.1 (0.7-5.8) Baso % (Auto) 0.4 (0.1-1.2) % Neut # (Auto) 2.94 (1.56-6.13) K/mm3 Lymph # (Auto) 1.76 (1.18-3.74) K/mm3 [place] # (Auto) 0.51 H (0.24-0.36) K/mm3 Eos # (Auto) 0.06 (0.04-0.36) K/mm3 Baso # (Auto) 0.02 (0.01-0.08) K/mm3 BUN 8 (7-18) mg/dL Creatinine 0.6 (0.55-1.02) mg/dL Est Cr Clr Drug Dosing 115.51 mL/min Estimated GFR (MDRD) > 60 (>60) mL/min Uric Acid 3.7 (2.6-6.0) mg/dL AST 23 (15-37) U/L ALT 35 (14-59) U/L Lactate Dehydrogenase 204 (81-234) U/L Ur Random Creatinine (30.0-125.0) mg/dL U Random Total Protein (0.0-11.8) mg/dL Protein/Creatinin Ratio (0-149) mg/g RPR (NONREACTIVE) SARS-CoV-2 RNA (BRE) (NEGATIVE) Blood Type O POSITIVE Gel Antibody Screen Negative Med Orders - Current: Current Medications Acetaminophen (Acetaminophen 325 Mg Tab) 650 mg PO Q4H PRN PRN Reason: mild pain or fever Last Admin: 07/28/21 04:26 Dose: 650 mg Documented by: Hydrocodone Bitart/Acetaminophen (Acetaminophen/Hydrocodone 325-5 Mg Tab) 1 tab PO Q4H PRN PRN Reason: Pain (moderate 4-6) Benzocaine/Menthol (Benzocaine/Menthol 20%-0.5% [place] 78 Gm Cannister) 0 gm TOP ASDIRECTED PRN PRN Reason: Perineal Comfort Measure Ibuprofen (Ibuprofen 600 Mg Tab) 600 mg PO Q6H PRN PRN Reason: Mild pain or fever Last Admin: 07/28/21 08:38 Dose: 600 mg Documented by: Kylah Turner (Kylah Turner Medicated Pads 40/Jar) 1 pad TOP ASDIRECTED PRN PRN Reason: Perineal Comfort Measure Discontinued Medications Ampicillin Sodium 2 gm/ Sodium (Chloride) 100 mls @ 200 mls/hr IV ONETIME ONE Stop: 07/27/21 12:59 Last Admin: 07/27/21 12:45 Dose: 200 mls/hr Documented by: Ampicillin Sodium 1 gm/ Sodium (Chloride) 100 mls @ 200 mls/hr IV Q4H RANDY Last Admin: 07/27/21 20:25 Dose: 200 mls/hr Documented by: Oxytocin/Lactated Ringer's (Pitocin In Lr 10 Units/1,000 Ml) 10 unit in 1,000 mls @ 12 mls/hr IV TITRATE RANDY; Protocol Last Titration: 07/27/21 21:07 Dose: 12 munits/min, 72 mls/hr Documented by: Oxytocin/Lactated Ringer's (Pitocin In Lr 10 Units/1,000 Ml) 10 unit in 1,000 mls @ 500 mls/hr IV .CONTINUOUS RANDY Lactated Ringer's (Ringers, Lactated) 1,000 mls @ 100 mls/hr IV ASDIRECTED RANDY Last Admin: 07/27/21 12:45 Dose: 100 mls/hr Documented by: Nalbuphine HCl (Nalbuphine 10 Mg/1 Ml Vial) 10 mg IVPUSH Q2H PRN PRN Reason: Pain Last Admin: 07/27/21 20:22 Dose: 10 mg Documented by: Ondansetron HCl (Ondansetron 4 Mg/2 Ml Sdv) 4 mg IVPUSH Q4H PRN PRN Reason: Nausea/Vomiting Sodium Chloride (Sodium Chloride 0.9% 10 Ml Syringe) 10 ml FLUSH ASDIRECTED PRN PRN Reason: Keep Vein Open - Interaction Infant Disposition, : [place] in Room with Family Interaction: Holding Infant Feeding: Bottle Fed Infant Support Person: Other (see below) - Recovery Exam Fundal Tone: Firm Fundal Level: 1 Fingerbreadths Below Umbilicus Lochia Amount: Small Lochia Color: Rubra/Red Perineum Description: Intact, Minimal Bruising/Swelling Episiotomy/Laceration: None Urinary Elimination: Voided - Exam General: Alert, Oriented, Cooperative GI/Abdominal Exam: Soft, Non-Tender - Problem List & Annotations (1) 37 weeks gestation of SNOMED Code(s): 49183233 Code(s): Z3A.37 - 37 WEEKS GESTATION OF Status: Acute Current Visit: Yes (2) Elevated blood pressure reading SNOMED Code(s): 23235029 Code(s): R03.0 - ELEVATED BLOOD-PRESSURE READING, W/O DIAGNOSIS OF HTN Status: Acute Current Visit: Yes (3) GBS (group B Streptococcus carrier), +RV culture, currently SNOMED Code(s): 2641110408498, 389203479, 4927358109843 Code(s): O99.820 - STREPTOCOCCUS B CARRIER STATE COMPLICATING Status: Acute Current Visit: Yes (4) Vaginal delivery SNOMED Code(s): 116817145 Code(s): O80 - ENCOUNTER FOR FULL-TERM UNCOMPLICATED DELIVERY Status: Acute Current Visit: No - Problem List Review Problem List Initiated/Reviewed/Updated: Yes - My Orders Last 24 Hours: My Active Orders 07/27/21 12:10 Resuscitation Status Routine 07/27/21 22:16 Acetaminophen [TylenoL] 650 mg PO Q4H PRN Acetaminophen/HYDROcodone [[place] 325-5 MG] 1 tab PO Q4H PRN Benzocaine/Menthol [Dermoplast Pain Relief 20%-0.5% [place]] See Dose Instructions TOP ASDIRECTED PRN Ibuprofen [Motrin] 600 mg PO Q6H PRN witch [place] [Tucks] 1 pad TOP ASDIRECTED PRN Heat Therapy [OM.PC] PRN 07/27/21 22:16 Activity as Tolerated [RC] PER UNIT ROUTINE Vital Signs [RC] 03,,15,21 Assess Lochia [WOMSER] Per Unit Routine Assess Uterine Involution [WOMSER] Per Unit Routine Breast Pump [WOMSER] Per Unit Routine Ice Therapy [OM.PC] Per Unit Routine Perineal Care [OM.PC] Per Unit Routine Peripheral IV Discontinue [OM.PC] Routine Sitz Bath [OM.PC] Per Unit Routine 07/28/21 22:16 Heat Therapy [OM.PC] PRN - Assessment Assessment:: PPD#1 - Plan Plan:: * Routine cares * Bottle feeding * Discharge home tomorrow
[2021-07-29] MEDS: Ibuprofen 600 MG Tab PO PRN (06:00)
--- NOTE | 2021-07-29 07:30 | PCM.DCSUM1 ---
Discharge Summary - Discharge Data Discharge Date: 07/29/21 Discharge Disposition: Home, Self-Care 01 Condition: Good - Referral to Home Health Primary Care Physician: Sadaf Winston MD - Discharge Diagnosis/Problem(s) (1) 37 weeks gestation of SNOMED Code(s): 13534220 ICD Code: Z3A.37 - 37 WEEKS GESTATION OF Status: Acute Current Visit: Yes (2) Elevated blood pressure reading SNOMED Code(s): 71310742 ICD Code: R03.0 - ELEVATED BLOOD-PRESSURE READING, W/O DIAGNOSIS OF HTN Status: Acute Current Visit: Yes (3) GBS (group B Streptococcus carrier), +RV culture, currently SNOMED Code(s): 5089251151822, 910157594, 4054060041695 ICD Code: O99.820 - STREPTOCOCCUS B CARRIER STATE COMPLICATING Status: Acute Current Visit: Yes (4) Vaginal delivery SNOMED Code(s): 416986960 ICD Code: O80 - ENCOUNTER FOR FULL-TERM UNCOMPLICATED DELIVERY Status: Acute Current Visit: No - Patient Summary/Data Complications: None Consults: None Recommended Follow-up Testing/Procedures: Follow up in 3 weeks for check Hospital Course: 41 y/o at 37 3/7 wks presented to L&D after two mild range BP's noted in clinic. On L&D BP's were improved, but patient with a prolonged deceleration on monitoring. For this reason was kept for IOL. Done with combination of pitocin and AROM. Progressed well to complete dilation and underwent an uncomplicated . See delivery note. did well and was discharged home on PPD#2 - Patient Instructions Diet: Regular Diet as Tolerated Activity: As Tolerated Activity, Other: Pelvic rest for 6 weeks Driving: May Drive Today Showering/Bathing: May Shower Showering/Bathing, Other: May Bathe Notify Provider of: Fever, Increased Pain, Swelling and Redness, Drainage, Nausea and/or Vomiting - Discharge Plan *PRESCRIPTION DRUG MONITORING PROGRAM REVIEWED*: Not Applicable *COPY OF PRESCRIPTION DRUG MONITORING REPORT IN PATIENT MACO: Not Applicable Home Medications: Home Meds Albuterol Sulfate [Albuterol Sulfate Hfa] 2 puff IH Q4H PRN 07/25/19 [History] Pnv No.95/Ferrous Fum/Folic AC [ Tablet] 1 tab PO DAILY 06/18/21 [ History] Acetaminophen [Tylenol] 650 mg PO Q4H PRN tablet 07/28/21 [Rx] Ibuprofen [Motrin] 600 mg PO Q6H PRN tablet 07/28/21 [Rx] Patient Handouts: Care After Vaginal Delivery, Steps to Quit Smoking Referrals: Sadaf Winston MD [Primary Care Provider] - (3 weeks for check ) - Discharge Summary/Plan Comment DC Time >30 min.: No Total # of Minutes for Discharge Time: 15 - Patient Data Vitals - Most Recent: Last Vital Signs Temp 37.1 C 07/29/21 03:10 Pulse 83 07/29/21 03:10 Resp 14 07/29/21 03:10 BP 116/86 07/29/21 03:10 Pulse Ox 99 07/29/21 03:10 Weight - Most Recent: 63.957 kg I&O - Last 24 hours: Intake & Output 07/28/21 07/29/21 07/29/21 22:59 06:59 14:59 Intake Total 0 Balance 0 Lab Results - Last 24 hrs: Laboratory Results - last 24 hr 07/27/21 Range/Units 11:40 Urine Opiates Screen Negative (IXOBDP=637) Ur Buprenorphine Scrn Negative (CUTOFF=10) Ur Oxycodone Screen Negative (GPS3SU=981) Urine Methadone Screen Negative (TRMBDW=130) Ur Propoxyphene Screen Negative (NGOIKK=111) Ur Barbiturates Screen Negative (WRLXBE=250) Ur Tricyclics Screen Negative (QMSYKW=949) Ur Phencyclidine Scrn Negative (CUTOFF=25) Ur Amphetamine Screen Negative (SATFOJ=830) U Methamphetamines Scrn Negative (SJAFBA=391) U Benzodiazepines Scrn Negative (BASSGR=831) U Cocaine Metab Screen Negative (UTUEOZ=765) U Marijuana (THC) Screen Presumptive positive H (CUTOFF=50) Med Orders - Current: Current Medications Acetaminophen (Acetaminophen 325 Mg Tab) 650 mg PO Q4H PRN PRN Reason: mild pain or fever Last Admin: 07/28/21 12:01 Dose: 650 mg Documented by: Hydrocodone Bitart/Acetaminophen (Acetaminophen/Hydrocodone 325-5 Mg Tab) 1 tab PO Q4H PRN PRN Reason: Pain (moderate 4-6) Benzocaine/Menthol (Benzocaine/Menthol 20%-0.5% [place] 78 Gm Cannister) 0 gm TOP ASDIRECTED PRN PRN Reason: Perineal Comfort Measure Ibuprofen (Ibuprofen 600 Mg Tab) 600 mg PO Q6H PRN PRN Reason: Mild pain or fever Last Admin: 07/29/21 06:00 Dose: 600 mg Documented by: Kylah Turner (Kylah Turner Medicated Pads 40/Jar) 1 pad TOP ASDIRECTED PRN PRN Reason: Perineal Comfort Measure Discontinued Medications Ampicillin Sodium 2 gm/ Sodium (Chloride) 100 mls @ 200 mls/hr IV ONETIME ONE Stop: 07/27/21 12:59 Last Admin: 07/27/21 12:45 Dose: 200 mls/hr Documented by: Ampicillin Sodium 1 gm/ Sodium (Chloride) 100 mls @ 200 mls/hr IV Q4H RANDY Last Admin: 07/27/21 20:25 Dose: 200 mls/hr Documented by: Oxytocin/Lactated Ringer's (Pitocin In Lr 10 Units/1,000 Ml) 10 unit in 1,000 mls @ 12 mls/hr IV TITRATE RANDY; Protocol Last Titration: 07/27/21 21:07 Dose: 12 munits/min, 72 mls/hr Documented by: Oxytocin/Lactated Ringer's (Pitocin In Lr 10 Units/1,000 Ml) 10 unit in 1,000 mls @ 500 mls/hr IV .CONTINUOUS RANDY Lactated Ringer's (Ringers, Lactated) 1,000 mls @ 100 mls/hr IV ASDIRECTED RANDY Last Admin: 07/27/21 12:45 Dose: 100 mls/hr Documented by: Nalbuphine HCl (Nalbuphine 10 Mg/1 Ml Vial) 10 mg IVPUSH Q2H PRN PRN Reason: Pain Last Admin: 07/27/21 20:22 Dose: 10 mg Documented by: Ondansetron HCl (Ondansetron 4 Mg/2 Ml Sdv) 4 mg IVPUSH Q4H PRN PRN Reason: Nausea/Vomiting Sodium Chloride (Sodium Chloride 0.9% 10 Ml Syringe) 10 ml FLUSH ASDIRECTED PRN PRN Reason: Keep Vein Open
--- NOTE | 2021-07-29 07:30 | PCM.PNPP ---
- General Info Date of Service: 07/29/21 Functional Status: Reports: Pain Controlled, Tolerating Diet, Ambulating, Urinating - Review of Systems General: Reports: No Symptoms Gastrointestinal: Reports: No Symptoms - Patient Data Vital Signs - Most Recent: Last Vital Signs Temp 37.1 C 07/29/21 03:10 Pulse 83 07/29/21 03:10 Resp 14 07/29/21 03:10 BP 116/86 07/29/21 03:10 Pulse Ox 99 07/29/21 03:10 Weight - Most Recent: 63.957 kg I&O - Last 24 Hours: Intake & Output 07/28/21 07/29/21 07/29/21 22:59 06:59 14:59 Intake Total 0 Balance 0 - Infant Interaction Disposition, : [place] in Room with Family Interaction: Holding Infant Infant Feeding: Bottle Fed Infant Support Person: Other (see below) - Recovery Exam Fundal Tone: Firm Fundal Level: 1 Fingerbreadths Below Umbilicus Lochia Amount: Small Lochia Color: Rubra/Red Perineum Description: Intact, Minimal Bruising/Swelling Episiotomy/Laceration: None Bladder Status: Voiding Urinary Elimination: Voided - Exam General: Alert, Oriented, Cooperative GI/Abdominal Exam: Soft, Non-Tender - Problem List & Annotations (1) 37 weeks gestation of SNOMED Code(s): 16286049 Code(s): Z3A.37 - 37 WEEKS GESTATION OF Status: Acute Current Visit: Yes (2) Elevated blood pressure reading SNOMED Code(s): 98357184 Code(s): R03.0 - ELEVATED BLOOD-PRESSURE READING, W/O DIAGNOSIS OF HTN Status: Acute Current Visit: Yes (3) GBS (group B Streptococcus carrier), +RV culture, currently SNOMED Code(s): 8395127830645, 835873725, 7888904508158 Code(s): O99.820 - STREPTOCOCCUS B CARRIER STATE COMPLICATING Status: Acute Current Visit: Yes (4) Vaginal delivery SNOMED Code(s): 139795756 Code(s): O80 - ENCOUNTER FOR FULL-TERM UNCOMPLICATED DELIVERY Status: Acute Current Visit: No - Problem List Review Problem List Initiated/Reviewed/Updated: Yes - My Orders Last 24 Hours: My Active Orders 07/28/21 22:16 Heat Therapy [OM.PC] PRN 07/29/21 07:29 Ready for Discharge [RC] PER UNIT ROUTINE - Assessment Assessment:: PPD#2 - Plan Plan:: * Routine cares * Bottle feeding * Discharge home today
== END 2021-07-29 10:40 | disposition home or self-care (01) | DRG 807 ==
LOC: JD.OBCHECK 11:03 → JD.OB 11:07 → JD.OBCHECK 12:10 → OBSVTOIN 21:48 → JD.OB 21:49
PROVIDERS: ADMIT Obstetrics & Gynecology; ATTEND Obstetrics & Gynecology
PROC: 10E0XZZ Delivery of Products of Conception, External Approach (ICD-10-PCS; principal; 2021-07-27)
PROC: 10907ZC Drainage of Amniotic Fluid, Therapeutic from Products of Conception, Via Natural or Artificial Opening (ICD-10-PCS; 2021-07-27)
PROC: 3E033VJ Introduction of Other Hormone into Peripheral Vein, Percutaneous Approach (ICD-10-PCS; 2021-07-27)
DX: O99.52 Diseases of the respiratory system complicating childbirth (principal); Z37.0 Single live birth; J45.909 Unspecified asthma, uncomplicated; K21.9 Gastro-esophageal reflux disease without esophagitis; O99.62 Diseases of the digestive system complicating childbirth; O99.02 Anemia complicating childbirth; D64.9 Anemia, unspecified; O99.824 Streptococcus B carrier state complicating childbirth; Z3A.37 37 weeks gestation of pregnancy; Z20.822 Contact with and (suspected) exposure to COVID-19; Z88.5 Allergy status to narcotic agent; Z88.8 Allergy status to other drugs, medicaments and biological substances; Z79.82 Long term (current) use of aspirin
CPT/HCPCS: 36415; 59025; 59409; 80306; 82565; 82570; 83615; 84156; 84450; 84460; 84520; 84550; 85025; 86592; 86850; 86900; 86901; A9270-GY; J0290; J2300; J2590; J7120; U0002